=== PATIENT | female | born 1980 | race Caucasian/White ===

== ENCOUNTER 2022-09-05 10:50 | Outpatient (OUT) | payer BC, SELFPAY ==
[2022-09-05 11:10] LABS: Basophils Absolute Auto 0.1 10^3/uL (0.0-0.1); Basophils Percent Auto 0.6 % (0.2-2.0); Eosinophils Absolute Auto 0.2 10^3/uL (0.0-0.7); Eosinophils Percent Auto 1.9 % (0.9-7.0); Hematocrit 39.5 % (36.0-48.0); Hemoglobin 13.3 g/dL (12.0-16.0); Immature Granulocytes Abs Auto 0.03 10^3/uL (0.00-0.03); Immature Granulocytes Pct Auto 0.3 % (0.0-0.5); Lymphocytes Absolute Auto 3.8 10^3/uL (1.2-3.8); Mean Corpuscular HGB Conc 33.7 g/dL (29.9-35.2); Mean Corpuscular Hemoglobin 29.3 pg (26.7-34.0); Mean Platelet Volume 9.1 fL (9.5-13.5); Monocytes Absolute Auto 0.8 10^3/uL (0.3-0.8); Monocytes Percent Auto 7.7 % (1.7-12.0); Neutrophils Absolute Auto 5.1 10^3/uL (1.4-6.5); Neutrophils Percent Auto 51.5 % (43.0-75.0); Platelet Count 407 10^3/uL (150-450); Red Blood Count 4.54 10^6/uL (4.20-5.40); Red Cell Distribution Width 12.7 % (11.0-15.0)
[2022-09-05 13:01] LABS: Alanine Aminotransferase 42 U/L (14-59); Albumin Globulin Ratio 1.1; Alkaline Phosphatase 111 U/L (46-116); Aspartate Amino Transferase 26 U/L (15-37); BUN Creatinine Ratio 24.3; Bilirubin Total 0.4 mg/dL (0.2-1.0); Calcium 9.2 mg/dL (8.5-10.1); Chloride 104 mmol/L (98-107); Chol HDL Ratio 6.2; Cholesterol 247 mg/dL (<=200); Estimated GFR (African America >60 (>=60); Estimated GFR (Non-African Ame >60 (>=60); Free T3 2.86 pg/mL (2.18-3.98); Globulin 3.5 g/dL; Glucose 101 mg/dL (74-106); HDL Cholesterol 40 mg/dL (40-60); Sodium 140 mmol/L (136-145); Total Protein 7.5 g/dL (6.4-8.2); Triglycerides 181 mg/dL (<=150); VLDL CHOLESTEROL 36.2 mg/dL
[2022-09-05 16:19] LABS: Estimated Average Glucose 117 mg/dL; Glycohemoglobin A1C 5.7 % (4.5-6.2)
[2022-09-06 11:28] LABS: Insulin 18.9 uIU/mL (2.6-24.9)
== END 2022-09-05 10:51 | disposition home or self-care (01) ==
LOC: LAB 10:55
PROVIDERS: PCP Family Medicine; Visit Provider Family Medicine
DX: Z00.00 Encounter for general adult medical examination without abnormal findings (principal)
CPT/HCPCS: 36415; 80053; 80061; 83036; 83525; 83540; 84436; 84443; 84481; 85025

== ENCOUNTER 2022-09-24 13:20 | Outpatient (OUT) | payer BC, SELFPAY ==
--- NOTE | 2022-09-24 13:24 | US_ITS ---
Patient: VARUN VANEGAS Exam Date: 09/24/2022 : 1980 Gender:F Ordering : DR Nathanael Cordon . Admission #: [id number] Family : DR Obie Sanchez . Order #: [id number] CLICK HERE TO VIEW EXAM RADIOLOGY REPORT PROCEDURE: MM TOMOSYNTHESIS DIAGNOSTIC BI, 09/24/2022, 13:18 US BREAST LT LIMITED, 09/24/2022, 14:17 COMPARISON: MAMMO POST BIOPSY LEFT, 12/06/2020. MG MAMM SCREEN 3D MARK CAD, 11/04/2020. INDICATIONS: Personal History Of chronic nipple discharge; tenderness within lateral breast in region of prior biopsy Calculator Name NCI Breast Cancer Risk Assessment Tool 5 Year Breast Cancer Risk 1.70% Lifetime Breast Cancer Risk 13.90% Personal Breast Cancer No Personal Ovarian Cancer No Treatments None Family Cancers None LOCATION: [facility] BREAST COMPOSITION: Heterogeneously dense,which may obscure small masses. FINDINGS: DIAGNOSTIC CATEGORY 4--SUSPICIOUS FOR MALIGNANCY. FINDING DOES NOT EXHIBIT CLASSIC FINDINGS OF BREAST CANCER: RIGHT BREAST: No significant suspicious finding. No significant change has occurred. LEFT BREAST: Stable mass and biopsy marker clip within posterior upper-outer quadrant. No appreciable mammographic abnormality within the subareolar region or appreciable duct dilation. New 1.7 cm mass within posterior medial breast only partially included on today's images due to its location. Ultrasound evaluation demonstrates an 8 x 8 x 3 mm complex cyst versus nodule in the subareolar region 1.4 cm from the nipple. Adjacent to this is an 8 by 5 x 4 mm mixed cystic and solid structure which demonstrates trace amount of internal blood flow on color Doppler; ultrasound-guided biopsy is recommended. Within posterior breast 10 o'clock position 4.8 cm from the nipple is a 1.3 x 1.9 x 0.6 cm hypoechoic area with increased through transmission compatible with a cyst. Follow-up ultrasound in 6 months is recommended to document stability of this presumed cyst. RECOMMENDATIONS: ULTRASOUND-GUIDED CORE BIOPSY: LEFT BREAST PLEASE NOTE: A NORMAL MAMMOGRAM DOES NOT EXCLUDE THE POSSIBILITY OF BREAST CANCER. A CLINICALLY SUSPICIOUS PALPABLE LUMP SHOULD BE BIOPSIED. Dictated by: Uriel Holguin M.D. on 09/24/2022 at 16:29 Approved by: Uriel Holguin M.D. on 09/24/2022 at 16:36
== END 2022-09-24 13:21 | disposition home or self-care (01) ==
LOC: MAMMO 13:20
PROVIDERS: PCP Family Medicine; Visit Provider Family Medicine
DX: Z87.898 Personal history of other specified conditions (principal); Z98.890 Other specified postprocedural states; R92.8 Other abnormal and inconclusive findings on diagnostic imaging of breast
CPT/HCPCS: 76642; 77066; G0279

== ENCOUNTER 2022-10-01 10:38 | Day surgery (SDC) | payer BC, SELFPAY ==
[2022-09-28] MEDS: LIDOCAINE HCL 10 ML, SODIUM BICARBONATE 1 MEQ INJ (14:40)
--- NOTE | 2022-10-01 10:58 | US_ITS ---
[address] [address] Patient Name: VARUN VANEGAS MRN: [id number] date: 1980 Sex: F Assigned Patient Location: US Current Patient Location: US Accession/Order Number: [id number] Exam Date: 10/01/2022 11:00 Report Date: 10/01/2022 12:47 At the request of: GERARDO ORELLANA Procedure: US breast vac bx w/ clip LT EXAM: US breast vac bx w/ clip LT HISTORY: Complex cyst nodule COMPARISON: Ultrasound breast left limited 09/24/2022 TECHNIQUE: After obtaining informed consent, ultrasound-guided biopsy was performed in the usual sterile manner. The location of the biopsy was then marked as indicated below. FINDINGS: Specimen #, Location: 3 core samples; retroareolar 7 x 6 x 4 mm mass versus complex cyst. Biopsy Needle: 13 gauge vacuum core biopsy needle. Marker(s): A single metallic marker was placed in the appropriate targeted location. Medication: Buffered 1% Lidocaine with epinephrine administered locally. Complications: None. Pathology: Pending. US/US breast vac bx w/ clip LT IMPRESSION: 1. Uneventful ultrasound-guided breast biopsy. 2. Pathology results are pending. An addendum to this report will be provided after pathology results are available. Electronically authenticated by: JORGE COATES Date: 10/01/2022 12:47
--- NOTE | 2022-10-01 10:58 | MM_ITS ---
Patient: VARUN VANEGAS Exam Date: 10/01/2022 : 1980 Gender:F Ordering : DR Nathanael Cordon . Admission #: [id number] Family : Order #: [id number] CLICK HERE TO VIEW EXAM RADIOLOGY REPORT PROCEDURE: MM POST BIOPSY LT COMPARISON: MM TOMOSYNTHESIS DIAGNOSTIC BI, 09/24/2022. MAMMO POST BIOPSY LEFT, 12/06/2020. MG MAMM SCREEN 3D MARK CAD, 11/04/2020. INDICATIONS: complex cyst versus nodule BREAST COMPOSITION: Heterogeneously dense,which may obscure small masses. FINDINGS: DIAGNOSTIC CATEGORY 1--NEGATIVE. BIOPSY MARKER: A metallic marker has been placed in the targeted location within the anterior lower-inner quadrant of the left breast. BREAST FINDINGS: Expected post biopsy findings. RECOMMENDATIONS: ROUTINE MAMMOGRAM AND CLINICAL EVALUATION IN 12 MONTHS. Dictated by: Uriel Holguin M.D. on 10/01/2022 at 13:57 Approved by: Uriel Holguin M.D. on 10/01/2022 at 14:11
[2022-10-01 11:05] VITALS: BP 113/78; PULSE 91; O2SAT 98
[2022-10-01] MEDS: LIDOCAINE HCL/EPINEPHRINE 10 ML, SODIUM BICARBONATE 1 MEQ INJ (14:40)
== END 2022-10-01 12:15 | disposition home or self-care (01) ==
LOC: US 10:39
PROVIDERS: Radiology Diagnostic Radiology; PCP Family Medicine; Visit Provider Family Medicine
DX: N64.89 Other specified disorders of breast (principal); N62 Hypertrophy of breast; N60.12 Diffuse cystic mastopathy of left breast
CPT/HCPCS: 19083; 77065; 88305; 88341; 88342

== ENCOUNTER 2022-12-05 08:30 | Outpatient (REF) | payer BC, SELFPAY ==
[2022-12-05 10:54] LABS: SARS-CoV-2 Ag NEGATIVE (NEGATIVE)
[2022-12-05 15:51] LABS: SARS-CoV-2 NAA NOT DETECTED (NOT DETECTE)
== END 2022-12-05 08:31 | disposition home or self-care (01) ==
LOC: LAB 08:30
PROVIDERS: PCP Family Medicine; Visit Provider Family Medicine
DX: J21.9 Acute bronchiolitis, unspecified (principal)
CPT/HCPCS: 87635; 87811

== ENCOUNTER 2023-04-04 10:02 | Outpatient (OUT) | payer BC, SELFPAY ==
--- NOTE | 2023-04-04 | US_ITS ---
Patient Name: VARUN VANEGAS MR#: [id number] : 1980 Exam Date: 04/04/2023 Ordering Doctor: DR Nathanael Cordon . RADIOLOGY REPORT PROCEDURE: MM TOMOSYNTHESIS DIAGNOSTIC LT, 04/04/2023, 10:20 US BREAST LT LIMITED, 04/04/2023, 09:47 COMPARISON: US BREAST LT LIMITED, 04/04/2023. US BREAST LT LIMITED, 09/24/2022. MM POST BIOPSY LT, 10/01/2022. MM TOMOSYNTHESIS DIAGNOSTIC BI, 09/24/2022. MAMMO POST BIOPSY LEFT, 12/06/2020. MG MAMM SCREEN 3D MARK CAD, 11/04/2020. INDICATIONS: breast nodule N63.0 Calculator Name NCI Breast Cancer Risk Assessment Tool 5 Year Breast Cancer Risk 1.70% Lifetime Breast Cancer Risk 13.90% Personal Breast Cancer No Personal Ovarian Cancer No Treatments None Family Cancers None LOCATION: [facility] BREAST COMPOSITION: Heterogeneously dense,which may obscure small masses. FINDINGS: DIAGNOSTIC CATEGORY 2--BENIGN FINDING: LEFT BREAST: Stable partially circumscribed mass/cyst within posterior upper-outer quadrant previously biopsied and shown to be benign. Stable partially circumscribed lesion within posterior medial breast; unchanged. Scattered asymmetries appear stable. Ultrasound evaluation shows previously seen biopsied lesion within anterior breast 7 o'clock region. Stable appearance of additional benign-appearing cysts and nodules. Specific attention to the 10 o'clock lesion 5.0 cm from the nipple; stable with no appreciable internal blood flow. Follow-up screening mammography in 1 year is recommended. Alternatively, given the complex parenchyma of the left breast MRI could be performed if clinically indicated. Self-breast examination and additional evaluation of any changes was stressed to the patient. RECOMMENDATIONS: ROUTINE MAMMOGRAM AND CLINICAL EVALUATION IN 12 MONTHS. PLEASE NOTE: A NORMAL MAMMOGRAM DOES NOT EXCLUDE THE POSSIBILITY OF BREAST CANCER. A CLINICALLY SUSPICIOUS PALPABLE LUMP SHOULD BE BIOPSIED. Dictated by: Uriel Holguin M.D. on 04/04/2023 at 11:09 Approved by: Uriel Holguin M.D. on 04/04/2023 at 11:23
--- NOTE | 2023-04-04 10:06 | MM_ITS ---
Patient Name: VARUN VANEGAS MR#: [id number] : 1980 Exam Date: 04/04/2023 Ordering Doctor: DR Nathanael Cordon . RADIOLOGY REPORT PROCEDURE: MM TOMOSYNTHESIS DIAGNOSTIC LT, 04/04/2023, 10:20 US BREAST LT LIMITED, 04/04/2023, 09:47 COMPARISON: US BREAST LT LIMITED, 04/04/2023. US BREAST LT LIMITED, 09/24/2022. MM POST BIOPSY LT, 10/01/2022. MM TOMOSYNTHESIS DIAGNOSTIC BI, 09/24/2022. MAMMO POST BIOPSY LEFT, 12/06/2020. MG MAMM SCREEN 3D MARK CAD, 11/04/2020. INDICATIONS: breast nodule N63.0 Calculator Name NCI Breast Cancer Risk Assessment Tool 5 Year Breast Cancer Risk 1.70% Lifetime Breast Cancer Risk 13.90% Personal Breast Cancer No Personal Ovarian Cancer No Treatments None Family Cancers None LOCATION: [facility] BREAST COMPOSITION: Heterogeneously dense,which may obscure small masses. FINDINGS: DIAGNOSTIC CATEGORY 2--BENIGN FINDING: LEFT BREAST: Stable partially circumscribed mass/cyst within posterior upper-outer quadrant previously biopsied and shown to be benign. Stable partially circumscribed lesion within posterior medial breast; unchanged. Scattered asymmetries appear stable. Ultrasound evaluation shows previously seen biopsied lesion within anterior breast 7 o'clock region. Stable appearance of additional benign-appearing cysts and nodules. Specific attention to the 10 o'clock lesion 5.0 cm from the nipple; stable with no appreciable internal blood flow. Follow-up screening mammography in 1 year is recommended. Alternatively, given the complex parenchyma of the left breast MRI could be performed if clinically indicated. Self-breast examination and additional evaluation of any changes was stressed to the patient. RECOMMENDATIONS: ROUTINE MAMMOGRAM AND CLINICAL EVALUATION IN 12 MONTHS. PLEASE NOTE: A NORMAL MAMMOGRAM DOES NOT EXCLUDE THE POSSIBILITY OF BREAST CANCER. A CLINICALLY SUSPICIOUS PALPABLE LUMP SHOULD BE BIOPSIED. Dictated by: Uriel Holguin M.D. on 04/04/2023 at 11:09 Approved by: Uriel Holguin M.D. on 04/04/2023 at 11:23
--- OUTSIDE RECORDS SUMMARY | 2023-04-04 10:10 | XMS_ITS | CCD ---
Author Name Unknown Address [address] [facility] [address] [place] [address] Organization [facility] Care Team Providers Care Press Operator Apprentice Name Role Phone LULA, DR LOERA Admitting Unavailable LULA, DR LOERA Attending Unavailable LULA, DR LOERA Consulting Unavailable REQUEST, DR LEXI LISTED Primary Care Unavaila ble LULA, DR LOERA Admitting Unavailable LULA, DR LOERA Attending Unavailable LULA, DR LOERA Consulting Unavailable REQUEST, DR ELLIOTT LISTED Primary Care Unavaila ble ZIEBER, DR URIEL Powell Consulting Unavailable LULA, DR LOERA Admitting Unavailable REQUEST, DR ELLIOTT LISTED Primary Care Unavaila ble COLLINS, DR NATALIA Cardoza Consulting Unavailable LULA, DR LOERA Attending Unavailable LULA, DR LOERA Consulting Unavailable LULA, DR LOERA Admitting Unavailable REQUEST, DR ELLIOTT LISTED Primary Care Unavaila ble LULA, DR LOERA Attending Unavailable LULA, DR LOERA Consulting Unavailable ZIEBER, DR URIEL Powell Consulting Unavailable LULA, DR LOERA Admitting Unavailable LULA, DR LOERA Attending Unavailable LULA, DR LOERA Consulting Unavailable LULA, DR LOERA Primary Care Unavailable LULA, DR LOERA Consulting Unavailable HOY, DR CARRILLO Primary Care Unavailable LULA, DR LOERA Admitting Unavailable LULA, DR LOERA Attending Unavailable Problems Active Problems Problem Classification Problem Date Documented Da te Episodic/Chronic Malaise and fatigue (4 sources) Other fatigue; Translations: [OTHER FATIGUE] Onset: 04-19-2021 Episodic Nonmalignant breast conditions (1 source) Diffuse cystic mastopathy of left breast; Translations: [DIFFUSE CYSTIC MASTOPATHY LT BREAST] Onset: 12-15-2020 Chronic Other endocrine disorders (4 sources) Endocrine disorder, unspecified; Translations: [ENDOCRINE DISORDER UNSPECIFIED] Onset: 02-13-2021 Episodic Past or Other Problems Problem Classification Problem Date Documented Date Episodic/Chronic Immunizations and screening for infectious disease (1 source) Encounter for screening for human papillomavirus (HPV); Translations: [ENC SCREENING HUMAN PAPILLOMAVIRUS] Onset: 10-29-2020 Episodic Nonmalignant breast conditions (8 sources) Unspecified lump in the left breast, upper outer quadrant; Translations: [Unspecified lump in the left breast, unspecified quadrant] Onset: 11-16-2020 Episodic Other screening for suspected conditions (not mental disorders or infectious disease) (4 sources) Encounter for screening mammogram for malignant neoplasm of breast; Translations: [ENC SCR MAMMO MALIG NEOPLASM BREAST] Onset: 11-04-2020 Episodic Results Test Name Value Interpretation Reference Range Facility ED Clinical Summaryon 2021 ED Clinical Summary [facility] ? Urgent Care [address] [place], [place] [id number] Clinical Summary PERSON INFORMATION Name: VARUN CAGE Age: 40 Years Sex: FEMALE : 1980 MRN: Acct#: Visit Reason: UC - Cough; SORE THROAT, COUGH, EAR PAIN Arrival: 06/11/2021 10:05:38 Discharge: 06/11/2021 10:44:00 LOS: 000 00:39 Check In: 06/11/2021 10:05:38 Checkout: 06/11/2021 10:44:00 Address: [address] [place], [place] [id number] PCP: GERARDO CORDON PROVIDER INFORMATION Provider Role Assigned Unassigned Aden OWENS, [place] ED Nurse 06/11/2021 10:09:40 Cr Cornejo PA-C ED PA 06/11/2021 10:09:46 VITALS INFORMATION Vital Sign Triage Latest Temperature Tympanic Temperature Temporal Artery Pulse Rate O2 Sat 97 % 97 % Respiratory Rate Blood Pressure /80 mmHg /80 mmHg MEDICAL INFORMATION Medications Given: Medication Dose Route dexamethasone (!-Decadron) 10 mg PO Allergy Information: No Known Medication Allergies PHYSICIAN DOCUMENTATION DISCHARGE INFORMATION: Discharge Disposition: Home Discharge Location: Home PATIENT EDUCATION INFORMATION Instructions: Strep Throat, Adult, Oyas-uy-Rviy Follow-Up: With: Address: Chris: GERARDO CORDON [address] [facility], [facility] [place] [address] Business (1) Within 1 week Comments: Please follow-up with Dr. Cordon, call the office and schedule an appointment to be seen in a week or sooner for continued care, take your Zithromax as prescribed, take ifcz-gqq-ofnekne pain medication as needed, drink plenty of water for hydration, and return back to the urgent care center for any worsening symptoms, concerns, or complications. DIAGNOSIS: 1:Strep pharyngitis Patient Understands: Yes - Patient/family/caregi leeanna verbalizes understanding of instructions given Comment: Normal [facility] ED Patient Summaryon 022 ED Patient Summary [facility] ? Urgent Care [address] [place] [address] PATIENT DISCHARGE INSTRUCTIONS Patient Information Name: VARUN CAGE Age: 40 Years Date of : 1980 Reason For Visit: UC - Cough; SORE THROAT, COUGH, EAR PAIN Arrival Time: 06/11/2021 10:05:38 Primary Care Physician: GERARDO CORDON Attending Physician: Cr Cornejo PA-C Comment: Patient Education With: Address: When: GERARDO CORDON [address] [place] [id number] Business (1) Within 1 week Comments: Please follow-up with Dr. Cordon, call the office and schedule an appointment to be seen in a week or sooner for continued care, take your Zithromax as prescribed, take yztx-jxv-tomyoeh pain medication as needed, drink plenty of water for hydration, and return back to the urgent care center for any worsening symptoms, concerns, or complications. Strep Throat, Adult Strep throat is an infection of the throat. It is caused by germs (bacteria). Strep throat is common during the cold months of the year. It mostly affects children who are 5?15 years old. However, people of all ages can get it at any time of the year. When strep throat affects the tonsils, it is called tonsillitis. When it affects the back of the throat, it is called pharyngitis. This infection spreads from person to person through coughing, sneezing, or having close contact. What are the causes? This condition is caused by the Streptococcus pyogenes germ. What increases the risk? You are more likely to develop this condition if: ? You care for young children. Children are more likely to get strep throat and may spread it to others. ? You go to crowded places. Germs can spread easily in such places. ? You kiss or touch someone who has strep throat. What are the signs or symptoms? Symptoms of this condition include: ? Fever or chills. ? Redness, swelling, or pain in the tonsils or throat. ? Pain or trouble when swallowing. ? White or yellow spots on the tonsils or throat. ? Tender glands in the neck and under the jaw. ? Bad breath. ? Red rash all over the body. This is rare. How is this treated? This condition may be treated with: ? Medicines that kill germs (antibiotics). ? Medicines that treat pain or fever. These include: ? Ibuprofen or acetaminophen. ? Aspirin, only for patients who are over the age of 18. ? Throat lozenges. ? Throat sprays. Follow these instructions at home: Medicines ? Take kjyg-dfk-bkiedqn and prescription medicines only as told by your doctor. ? Take your antibiotic medicine as told by your doctor. Do not stop taking the antibiotic even if you start to feel better. Eating and drinking ? If you have trouble swallowing, eat soft foods until your throat feels better. ? Drink enough fluid to keep your pee (urine) pale yellow. ? To help with pain, you may have: ? Warm fluids, such as soup and tea. ? Cold fluids, such as frozen desserts or popsicles. General instructions ? Rinse your mouth (gargle) with a salt-water mixture 3?4 times a day or as needed. To make a salt-water mixture, dissolve ??1 tsp (3?6 g) of salt in 1 cup (237 mL) of warm water. ? Rest as much as you can. ? Stay home from work or school until you have been taking antibiotics for 24 hours. ? Avoid smoking or being around people who smoke. ? Keep all follow-up visits as told by your doctor. This is important. How is this prevented? ? Do not share food, drinking cups, or personal items. They can cause the germs to spread. ? Wash your hands well with soap and water. Make sure that all people in your house wash their hands well. ? Have family members tested if they have a fever or a sore throat. They may need an antibiotic if they have strep throat. Contact a doctor if: ? You have swelling in your neck that keeps getting bigger. ? You get a rash, cough, or earache. ? You cough up a thick fluid that is green, yellow-brown, or bloody. ? You have pain that does not get better with medicine. ? Your symptoms get worse instead of getting better. ? You have a fever. Get help right away if: ? You vomit. ? You have a very bad headache. ? Your neck hurts or feels stiff. ? You have chest pain or are short of breath. ? You have drooling, very bad throat pain, or changes in your voice. ? Your neck is swollen, or the skin gets red and tender. ? Your mouth is dry, or you are peeing less than normal. ? You keep feeling more tired or have trouble waking up. ? Your joints are red or painful. Summary ? Strep throat is an infection of the throat. It is caused by germs (bacteria). ? This infection can spread from person to person through coughing, sneezing, or having close contact. ? Take your medicines, including antibiotics, as told by you (more content not included)... Normal [facility] Recordon 022 Urgent Care Record [facility] ? Urgent Care [address] [place] [address] PATIENT DISCHARGE INSTRUCTIONS Patient Information Name: VARUN CAGE Age: 40 Years Date of : 1980 Reason For Visit: UC - Cough; SORE THROAT, COUGH, EAR PAIN Arrival Time: 06/11/2021 10:05:38 Primary Care Physician: GERARDO CORDON Attending Physician: Cr Cornejo PA-C Comment: Visit Diagnosis: Diagnoses This Visit Strep pharyngitis (J02.0) UC - Cough ([id number]) If you received any narcotics, sedation, or any other medication that causes drowsiness for the next 24 hours, unless otherwise directed: ? Do not drive a car. ? Do not operate machinery such as power tools, lawn mowers, drills, sewing machines, or stoves ? Avoid alcoholic beverages and drugs for allergies, nerves, or sleep ? Do not make important personal or business decisions or sign any legal documents With: Address: When: GERARDO CORDON [address] [facility], [address] [place] [id number] Business (1) Within 1 week Comments: Please follow-up with Dr. Cordon, call the office and schedule an appointment to be seen in a week or sooner for continued care, take your Zithromax as prescribed, take hzjy-xgu-inljype pain medication as needed, drink plenty of water for hydration, and return back to the urgent care center for any worsening symptoms, concerns, or complications. Medication Information: The exam and treatment you received today in the [facility] were for an urgent problem and are not intended as complete care. It is important for you to follow up with a doctor, nurse practitioner, or physician?s emergency veterinary assistant for ongoing care. If your symptoms become worse or you do not improve as expected and you are unable to reach your usual health care provider, you should return to the Emergency Department, we are available 24 hours a day. For those patients who have received Radiology results, the interpretation of your X-ray as given to you by our Urgent Care physician is only a preliminary report. The Radiologist will review your films and if there is a change in the diagnosis you will be notified by phone. Please make sure you have provided a working phone number so we can reach you if necessary. In the event that you had a lab culture while you were a patient in the Urgent Care, you will be notified by phone if there is a need to change your antibiotic. Please make sure you have provided a working phone number so we can reach you if necessary. [facility] has provided you with a complete list of medications post discharge. Please inform your bridge club manager/provider of your visit and for further instruction on these medications. Any specific questions regarding your chronic medications and dosages should be discussed with your primary care physician(s) and/or pharmacist. New Medications [facility] [facility], [address], [place] [id number], [phone] azithromycin (Zithromax 500 mg oral tablet) 1 tab(s) Oral every day for 5 Days. Refills: 0. Other Medications dexamethasone (!-Decadron) 10 Milligram Oral once. MAGRU. Medications to Continue That Have Not Changed Other Medications testosterone (testosterone 2% transdermal cream) Topical every day. Visit Information Allergies: Substance Reaction Symptoms Type Comments No Known Medication Allergies Drug Vital Signs: Vitals and Measurements this Visit (last charted value for your 06/11/2021 visit) Vital Signs This Visit Temperature Temporal: 37 DegC Peripheral Pulse Rate: 92 bpm Respiratory Rate: 16 br/min Systolic Blood Pressure: 118 mmHg Diastolic Blood Pressure: 80 mmHg SpO2: 97 % Oxygen Therapy: Room air Measurements This Visit Height: 162.56 cm Weight: 82.55 kg Body Mass Index: 31.24 kg/m2 Problems List: Problem Onset Comments Disease caused by 2019 novel coronavirus 05/11/20 Problem added by Rule (IC_COVID19_AUTO_PROB BERNIE) following 2019 Novel Coronavirus (CoVID-19), 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 MRSA (methicillin resistant Staphylococcus aureus) 03/15/14 Suprapubic abdominal wound culture positive for MRSA Strep throat Patient Education Strep Throat, Adult Strep throat is an infection of the throat. It is caused by germs (bacteria). Strep throat is common during the cold months of the year. It mostly affects children who are 5?15 years old. However, people of all ages can get it at any time of the year. When strep throat affects the tonsils, it is called tonsillitis. When it affects the back of the throat, it is called pharyngitis. This infection spreads from person to person through coughing, sneezing, or having close contact. What are the causes? This condition is caused by the Streptococcus pyogenes germ. What increases the risk? You are more likely to develop this cond (more content not included)... Normal [facility] GTT 2 HRon 04-19-2021 Glucose [Mass/Vol] 101 mg/dL Normal 74-106 [facility] Comment on above: Performed By: #### D SUSANNAH #### [facility] [address] [place] [address] Dr. Jarred Anaya Glucose [Mass/Vol] 127 mg/dL Normal [facility] Comment on above: Performed By: #### Amos DAVALOS #### [facility] [address] [place] [address] Dr. Jarred Anaya Glucose [Mass/Vol] 113 mg/dL Normal [facility] Comment on above: Performed By: #### Amos DAVALOS #### [facility] [address] [place] [address] Dr. Jarred Anaya CORTISOL FREE, TOTAL WITH CB Juan Carlos 02-21-2021 Shankar.Bind.Glob.(CBG) 2.2 mg/dL Normal [facility] Comment on above: Result Comment: This test was developed and its performance characteristics determined by [facility]. It has not been cleared or approved by the Food and Drug Administration. Reference Range: Adults: 1.7 - 3.1 Performed By: #### C ORTFRE #### [facility] [address] [place] [address] Dr. Jarred Anaya Cortisol, Serum LCMS 9.3 ug/dL Normal [facility] Comment on above: Result Comment: This test was developed and its performance characteristics determined by [facility]. It has not been cleared or approved by the Food and Drug Administration. Reference Range: Adults 8:00 AM 8.0 - 19 4:00 PM 4.0 - 11 Performed By: #### C ORTFRE #### [facility] [address] [place] [address] Dr. Jarred Anaya Free Cortisol, Serum 0.50 ug/dL Normal [facility] Comment on above: Result Comment: Refe rence Range: Adults 8:00 AM: 0.2 - 1.8 Performed By: #### C ORTFRE #### [facility] [address] [place] [address] Dr. Jarred Anaya Percent Free Cortisol, Serum 5.4 % Normal [facility] Comment on above: Result Comment: Refe rence Range: Adults 8:00 am: 2.3 - 9.5 Performed By: #### C ORTFRE #### [facility] [address] [place] [address] Dr. Jarred Anyaa REVERSE T3on 02-18-2021 Reverse T3, Serum 16.6 ng/dL Normal 9.2-24.1 [facility] Comment on above: Result Comment: This test was developed and its performance characteristics determined by [facility]. It has not been cleared or approved by the Food and Drug Administration. Performed By: #### R EVRT3 #### [facility] [address] [place] [address] [address] Jarred Anaya SEROTONINon 02-16-2021 Serotonin, Serum 199 ng/mL Normal 0-420 [facility] Comment on above: Performed By: #### S EROTON #### [facility] [address] [place] [address] [address] Jarred Anaya ESTRONEon 02-15-2021 Estrone, Serum 119 pg/mL Normal [facility] Comment on above: Result Comment: Adul t: Follicular phase 39 - 132 Periovulatory 58 - 256 Luteal phase 54 - 179 : 1st trimester 247 - 2774 2nd trimester 569 - 5781 Postmenopausal: with ERT 51 - 488 without ERT 31 - 100 Performed By: #### E STRONE #### [facility] [address] [address] [address] Jarred Anaya FREE TESTOSTERONEon 02-16-20 21 Free Testosterone(Direct) 1.0 pg/mL Normal 0.0-4.2 [facility] Comment on above: Performed By: #### D HEASUL #### [facility] [address] [place] [address] [address] Jarred Anaya TESTOSTERONE, FREE,DIRECT, T OTALon 02-15-2021 Free Testosterone(Direct) 1.4 pg/mL Normal 0.0-4.2 [facility] Comment on above: Result Comment: Perf ormed at: BN Performed By: #### F T4 #### [facility] [address] [place] [address] Dr. Jarred Anaya Testosterone [Mass/Vol] 21 ng/dL Normal 4-50 [facility] Comment on above: Result Comment: Perf ormed at: CB Performed By: #### F T4 #### [facility] [address] [place] [address] Dr. Jarred Anaya VIT D 1 25 DIHYDROXYon 02-15 Calcitriol(1,25 di-OH Vit D) 50.7 pg/mL Normal 19.9-79.3 [facility] Comment on above: Performed By: #### F T4 #### [facility] [address] [place] [address] Dr. Jarred Anaya C-PEPTIDE, SERUMon C-Peptide, Serum 3.0 ng/mL Normal 1.1-4.4 [facility] Comment on above: Result Comment: C-Pe ptide reference interval is for fasting patients. Performed By: #### D HEASUL #### [facility] [address] [place] [address] Dr. Jarred Anaya DHEA-SULFATEon 02-14-2021 DHEA-Sulfate 66.6 ug/dL Normal 57.3-279.2 [facility] Comment on above: Performed By: #### D FLORENCIOUL #### [facility] [address] [place] [address] Dr. Jarred Anaya ESTRADIOLon 02-14-2021 Estradiol 254.0 pg/mL Normal [facility] Comment on above: Result Comment: Adul t Female: Follicular phase 12.5 - 166.0 Ovulation phase 85.8 - 498.0 Luteal phase 43.8 - 211.0 Postmenopausal <6.0 - 54.7 1st trimester 215.0 - >4300.0 Marty ECLIA methodology Performed By: #### E STRADI #### [facility] [address] [place] [address] Dr. Jarred Anaya FERRITINon 02-14-2021 Ferritin [Mass/Vol] 80 ng/mL Normal 15-150 [facility] Comment on above: Performed By: #### F T4 #### [facility] [address] [place] [address] Dr. Jarred Anaya FREE T3 LABCORPon 02-14-2021 Triiodothyronine (T3) Free 3.2 pg/mL Normal 2.0-4.4 [facility] Comment on above: Performed By: #### F T3LC #### [facility] [address] [place] [address] Dr. Jarred Anaya INSULINon 02-14-2021 Insulin 19.1 uIU/mL Normal 2.6-24.9 [facility] Comment on above: Performed By: #### D SUSANNAH #### [facility] [address] [place] [address] Dr. Jarred Anaya PROGESTERONEon 02-14-2021 Progesterone 10.1 ng/mL Normal [facility] Comment on above: Result Comment: Foll icular phase 0.1 - 0.9 Luteal phase 1.8 - 23.9 Ovulation phase 0.1 - 12.0 First trimester 11.0 - 44.3 Second trimester 25.4 - 83.3 Third trimester 58.7 - 214.0 Postmenopausal 0.0 - 0.1 Performed By: #### Amos DAVALOS #### [facility] [address] [place] [address] Dr. Jarred Anaya SEX HORMONE-BINDING GLOBULIN on 02-14-2021 Sex Horm Binding Glob, Serum 116.0 nmol/L Normal 24.6-122.0 [facility] Comment on above: Performed By: #### F T4 #### [facility] [address] [place] [address] Dr. Jarred Anaya T3, TOTAL (TRIIODOTHYRONINE) on 02-14-2021 T3, TOTAL 116 ng/dL Normal 71-180 [facility] Comment on above: Performed By: #### F T4 #### [facility] [address] [place] [address] Dr. Jarred Anaya T4 [facility]OR[facility]on 02-14-2021 T4 [Mass/Vol] 7.8 ug/dL Normal 4.5-12.0 [facility] Comment on above: Performed By: #### Amos DAVALOS #### [facility] [address] [place] [address] Dr. Jarred Anaya THYROGLOBULIN AB AND THYROGL OBULINon 02-14-2021 Thyroglobulin Antibody <1.0 Normal 0.0-0.9 [facility] Comment on above: Result Comment: Thyr oglobulin Antibody measured by [employer] Pattern Methodology Performed By: #### T HYGIMA #### [facility] [address] [place] [address] Dr. Jarred Anaya Thyroglobulin by AMANUEL 15.4 ng/mL Normal 1.5-38.5 [facility] Comment on above: Result Comment: Acco rding to the National Academy of Clinical Biochemistry, the reference interval for Thyroglobulin (TG) should be related to euthyroid patients and not for patients who underwent thyroidectomy. TG reference intervals for these patients depend on the residual mass of the thyroid tissue left after surgery. Establishing a post-operative baseline is recommended. The assay limit of quantitation is 0.1 ng/mL . Thyroglobulin measured by Sonali [place] Immunometric Assay Performed By: #### T HYGIMA #### [facility] [address] [place] [address] Dr. Jarred Anaya THYROID PEROXIDASE ABon 01-19 Thyroid Peroxidase (TPO) Ab <8 Normal 0-34 [facility] Comment on above: Performed By: #### T POAB #### [facility] [address] [place] [address] Dr. Jarred Anaya FREE T4on 02-13-2021 Free T4 [Mass/Vol] 0.97 ng/dL Normal 0.78-2.19 [facility] Comment on above: Performed By: #### F T4 #### [facility] [address] [place] [address] Dr. Jarred Anaya GLUCOSE BLOODon 02-13-2021 Glucose [Mass/Vol] 98 mg/dL Normal 74-106 [facility] Comment on above: Performed By: #### D SUSANNAH #### [facility] [address] [place] [address] Dr. Jarred Anaya GLYCOHEMOGLOBIN A1Con 2020 ADA RECOMMENDATION ADA THERAPEUTIC TARGET 6.0 - 7.0 ACTION SUGGESTED > 7.0 Normal [facility] Comment on above: Performed By: #### D SUSANNAH #### [facility] [address] [place] [address] Dr. Jarred Anaya Glucose [Mass/Vol] 114 mg/dL Normal [facility] Comment on above: Performed By: #### D HEBELENUL #### [facility] [address] [address] [address] Jarred Anaya HbA1c (Bld) [Mass fraction] 5.6 % Normal <=6.0 [facility] Comment on above: Performed By: #### D SUSANNAH #### [facility] [address] [place] [address] [address] Jarred Anaya TSHon 02-13-2021 TSH 2.214 uIU/mL Normal 0.470-4.680 [facility] Comment on above: Performed By: #### D SUSANNAH #### [facility] Laboratory [address] [address] [address] Jarred Anaya TSH RANGE SEE BELOW Normal [facility] Comment on above: Result Comment: <0.3 4 UIU/ml HYPERTHYROID 0.34-5.60 UIU/ml EUTHYROID >5.60 UIU/ml HYPOTHYROID Performed By: #### D SUSANNAH #### [facility] Laboratory [address] [address] [address] Jarred Anaya MAMMO POST BIOPSY LEFTon MAMMO POST BIOPSY LEFT Patient: OG CAGE Exam Date: 12/06/2020 : 1980 Gender:F Ordering : DR LUZ MARIA COTTON . Admission #: [id number] Family : Order #: [id number] CLICK HERE TO VIEW EXAM This report includes an Addendum and supersedes previous reports for this exam. RADIOLOGY REPORT PROCEDURE: MAMMOGRAM POST BIOPSY IMAGES COMPARISON: MG MAMM MARK DIAG W CAD DIG, 12/17/2014. MG MAMM SCREEN 3D MARK CAD, 11/04/2020. INDICATIONS: Mammographic mass of left breast BREAST COMPOSITION: Heterogeneously dense,which may obscure small masses. FINDINGS: BIOPSY MARKER: A metallic marker has been placed in the targeted location within the upper-outer quadrant of the left breast. BREAST FINDINGS: Expected post biopsy findings. RECOMMENDATIONS: Dictated by: Uriel Holguin M.D. on 12/06/2020 at 14:31 Approved by: Uriel Holguin M.D. on 12/06/2020 at 14:32 ADDENDUM: FINDINGS: DIAGNOSTIC CATEGORY 3--PROBABLY BENIGN FINDING. THE FOLLOWING FINDING(S) HAS A HIGH PROBABILITY OF A BENIGN ETIOLOGY: RECOMMENDATIONS: SHORT TERM FOLLOW-UP DIAGNOSTIC MAMMOGRAM LEFT BREAST IN 6 MONTHS. Dictated by: Uriel Holguin M.D. on 12/14/2020 at 14:11 Approved by: Uriel Holguin M.D. on 12/14/2020 at 14:11 Normal [facility] US VAC ASST BX BRST LT W CLI Lucien 12-06-2020 US VAC ASST BX BRST LT W CLIP Patient: VARUN CAGE Exam Date: 12/06/2020 : 1980 Gender:F Ordering : DR LUZ MARIA COTTON . Admission #: [id number] Family : Order #: [id number] CLICK HERE TO VIEW EXAM This report includes an Addendum and supersedes previous reports for this exam. RADIOLOGY REPORT PROCEDURE: ULTRASOUND BIOPSY VACCUUM ASSISTED LEFT WITH CLIP COMPARISON: US BREAST LEFT LIMITED, 11/16/2020. INDICATIONS: Mammographic mass of left breast DESCRIPTION: After obtaining informed consent, a vacuum assisted ultrasound-guided biopsy was performed in the usual sterile manner. The location of the biopsy was then marked as indicated below. FINDINGS: RECOMMENDATIONS: SPECIMEN #, LOCATION: 3 soft tissue core specimens and 3 mL reddish brown aspirate fluid; mixed cystic and solid 2.7 cm lesion at 2:00. BIOPSY NEEDLE: 13 gauge Elite (r) vacuum core biopsy needle. 19 gauge needle for aspiration. MARKERS(S) PLACED: A single metallic marker was placed in the appropriate targeted location. MEDICATION: Buffered 1% lidocaine with epinephrine administered locally. COMPLICATIONS: None. PATHOLOGY LAB: Pending. CONCLUSION: 1. Uneventful ultrasound-guided breast biopsy. 2. Pathology results are pending. An addendum to this report will be provided after pathology results are available. Dictated by: Uriel Holguin M.D. on 12/06/2020 at 14:32 Approved by: Uriel Holguin M.D. on 12/06/2020 at 14:34 ADDENDUM: Final pathologic diagnosis: Breast parenchyma with fibrocystic changes, usual ductal hyperplasia, and apocrine metaplasia. This report was transmitted to the referring physician's office on December 12, 2020, and the office called to confirm receipt. Dictated by: Uriel Holguin M.D. on 12/14/2020 at 14:10 Approved by: Uriel Holguin M.D. on 12/14/2020 at 14:11 Normal [facility] US BREAST LEFT LIMITEDon US BREAST LEFT LIMITED Patient: OG CAGE Exam Date: 11/16/2020 : 1980 Gender:F Ordering : DR LUZ MARIA COTTON . Admission #: [id number] Family : Order #: [id number] CLICK HERE TO VIEW EXAM RADIOLOGY REPORT PROCEDURE: ULTRASOUND BREAST LEFT LIMITED COMPARISON: MG MAMM SCREEN 3D MARK CAD, 11/04/2020. INDICATIONS: Lump in left breast TECHNIQUE: Breast ultrasound was performed, with evaluation focusing only on specific areas of concern. FINDINGS: DIAGNOSTIC CATEGORY 4--SUSPICIOUS FOR MALIGNANCY BUT FINDING DOES NOT EXHIBIT CLASSIC FINDINGS OF BREAST CANCER: Ultrasound demonstrates 2 focal lesions in the left breast. At the 2 o'clock position is an area of oval anechoic echogenicity measuring 1.6 x 1.1 x 0.5 cm. This has an imperceptible rim with increased acoustic through transmission, a simple cyst is favored. At the 1 o'clock position is a lobular area of hypo echogenicity measuring 2.3 x 2.2 x 0 8 cm in size. This lesion has both solid and cystic components with a wall measuring up to 1 mm. This lesion is indeterminate. Biopsy is recommended for further evaluation. RECOMMENDATIONS: Tissue sampling of the left breast, fine needle aspiration versus possible core biopsy PLEASE NOTE: A NORMAL ULTRASOUND EXAMINATION DOES NOT EXCLUDE THE POSSIBILITY OF BREAST CANCER. A CLINICALLY SUSPICIOUS PALPABLE LUMP SHOULD BE BIOPSIED. Dictated by: Natalia Addison MD on 11/18/2020 at 07:25 Approved by: Natalia Addison MD on 11/18/2020 at 07:30 Normal [facility] MG MAMM SCREEN 3D MARK CADon 11-04-2020 MG MAMM SCREEN 3D MARK CAD Patient: VARUN CAGE Exam Date: 11/04/2020 : 1980 Gender:F Ordering : DR LUZ MARIA COTTON . Admission #: [id number] Family : Order #: [id number] CLICK HERE TO VIEW EXAM RADIOLOGY REPORT PROCEDURE: MAMMOGRAM SCREENING 3D BILATERAL CAD COMPARISON: MG MAMM MARK DIAG W CAD DIG, 12/17/2014. MG MAMM MARK DIAG W CAD DIG, 08/18/2013. INDICATIONS: Screening mammography Calculator Name NCI Breast Cancer Risk Assessment Tool 5 Year Breast Cancer Risk 0.50% Lifetime Breast Cancer Risk 9.00% Personal Breast Cancer No Personal Ovarian Cancer No Treatments None Family Cancers None LOCATION: [facility] BREAST COMPOSITION: Heterogeneously dense,which may obscure small masses. FINDINGS: DIAGNOSTIC CATEGORY 0--INCOMPLETE ASSESSMENT: NEED ADDITIONAL IMAGING EVALUATION. RIGHT BREAST: No significant suspicious finding. Scattered benign-appearing nodules are present. No significant change has occurred. LEFT BREAST: Oval partially circumscribed 2.8 x 1.9 x 1.8 cm mass within the posterior upper-outer quadrant. Ultrasound guided evaluation is recommended. RECOMMENDATIONS: ULTRASOUND: LEFT BREAST PLEASE NOTE: A NORMAL MAMMOGRAM DOES NOT EXCLUDE THE POSSIBILITY OF BREAST CANCER. A CLINICALLY SUSPICIOUS PALPABLE LUMP SHOULD BE BIOPSIED. Dictated by: Uriel Holguin M.D. on 11/04/2020 at 15:34 Approved by: Uriel Holguin M.D. on 11/04/2020 at 15:39 Normal [facility] PAP ACOG PANEL 2: 30 to 65on 10-20-2020 . . Normal [facility] Comment on above: Result Comment: Perf ormed at: [facility] Performed By: #### F T4 #### [facility] [address] [address] [address] Jarred Anaya Age Gdln ACOG Testing 30-65 Normal [facility] Comment on above: Performed By: #### F T4 #### [facility] [address] [address] [address] Jarred Anaya DIAGNOSIS: Comment Normal [facility] Comment on above: Result Comment: NEGA TIVE FOR INTRAEPITHELIAL LESION OR MALIGNANCY. PREDOMINANCE OF COCCOBACILLI CONSISTENT WITH SHIFT IN VAGINAL AMEENA IS PRESENT. Performed at: [facility] Performed By: #### F T4 #### [facility] [address] [address] [address] Jarred Anaya HPV Aptima Negative Normal Negative [facility] Comment on above: Result Comment: This nucleic acid amplification test detects fourteen high-risk HPV types (16,18,31,33,35,39,45,51,52,56,58,59,66,68) without differentiation. Performed at: =G Performed By: #### F T4 #### [facility] [address] [place] [address] Dr. Jarred Anaya Methodology: Comment Normal [facility] Comment on above: Result Comment: This liquid based ThinPrep(R) pap test was screened with the use of an image guided system. Performed at: [facility] Performed By: #### F T4 #### [facility] [address] [address] [address] Jarred Anaya Note: Comment Normal [facility] Comment on above: Result Comment: The Pap smear is a screening test designed to aid in the detection of premalignant and malignant conditions of the uterine cervix. It is not a diagnostic procedure and should not be used as the sole means of detecting cervical cancer. Both false-positive and false-negative reports do occur. . Performed at: [facility] Performed By: #### F T4 #### [facility] [address] [place] [address] Dr. Jarred Anaya Performed by: Comment Normal [facility] Comment on above: Result Comment: Kandace Key, [employer] Operator (ASCP) Performed at: [facility] Performed By: #### F T4 #### [facility] [address] [place] [address] Dr. Jarred Anaya Specimen adequacy: Comment Normal [facility] Comment on above: Result Comment: Sati sfactory for evaluation. Endocervical and/or squamous metaplastic cells (endocervical component) are present. Performed at: [facility] Performed By: #### F T4 #### [facility] [address] [place] [address] Dr. Jarred Anaya Encounters Encounter Date Encounter Type Care Provider Facility Start: 04-19-2021 End: 04-20-[address] LUZ MARIA COTTON Facility:[facility] Start: 02-13-2021 End: 02-14-[address] LUZ MARIA COTTON Facility:[facility] Start: 12-06-2020 End: 12-06-[address] LUZ MARIA COTTON Facility:[facility] Start: 11-16-2020 End: 09-30-[address] LUZ MARIA COTTON Facility:[facility] Start: 11-04-2020 End: 11-05-[address] LUZ MARIA COTTON Facility:[facility] Start: 10-29-2020 Encounter for gyneco logical examination (general) (routine) without abnormal findings DR LUZ MARIA COTTON [facility] Start: 10-17-2020 End: 10-17-[address] LUZ MARIA COTTON Facility:[facility] Start: 10-17-2020 End: 10-17-2020 Encounter for gynecological examination (general) (routine) without abnormal findings DR LUZ MARIA COTTON Facility:[facility] Payers Date Payer Category Payer Unknown [id number] 2.16.84 [id number] 1980 Unknown [id number] 2.16.84 [id number] 1980 Unknown [id number] 2.16.84 [id number] 1980 Unknown [id number] 2.16.84 [id number] 1980 Unknown [id number] 2.16.84 [id number] 1980 Unknown [id number] 2.16.84 [id number] 1959 Unknown [id number] 1960 Unknown [id number] Clinical Note 06-11-2021 Note Date & Type Note Facility 06-11-2021 Note Patient Education Ma terials Follows:Disease Strep Throat, Adult Strep throat is an infection of the throat. It is caused by germs (bacteria). Strep throat is common during the cold months of the year. It mostly affects children who are 5?15 years old. However, people of all ages can get it at any time of the year. When strep throat affects the tonsils, it is called tonsillitis. When it affects the back of the throat, it is called pharyngitis. This infection spreads from person to person through coughing, sneezing, or having close contact. What are the causes? This condition is caused by the Streptococcus pyogenes germ. What increases the risk? You are more likely to develop this condition if: ? You care for young children. Children are more likely to get strep throat and may spread it to others. ? You go to crowded places. Germs can spread easily in such places. ? You kiss or touch someone who has strep throat. What are the signs or symptoms? Symptoms of this condition include: ? Fever or chills. ? Redness, swelling, or pain in the tonsils or throat. ? Pain or trouble when swallowing. ? White or yellow spots on the tonsils or throat. ? Tender glands in the neck and under the jaw. ? Bad breath. ? Red rash all over the body. This is rare. How is this treated? This condition may be treated with: ? Medicines that kill germs (antibiotics). ? Medicines that treat pain or fever. These include: ? Ibuprofen or acetaminophen. ? Aspirin, only for patients who are over the age of 18. ? Throat lozenges. ? Throat sprays. Follow these instructions at home: Medicines ? Take [id number] and prescription medicines only as told by your doctor. ? Take your antibiotic medicine as told by your doctor. Do not stop taking the antibiotic even if you start to feel better. Eating and drinking ? If you have trouble swallowing, eat soft foods until your throat feels better. ? Drink enough fluid to keep your pee (urine) pale yellow. ? To help with pain, you may have: ? Warm fluids, such as soup and tea. ? Cold fluids, such as frozen desserts or popsicles. General instructions ? Rinse your mouth (gargle) with a salt-water mixture 3?4 times a day or as needed. To make a salt-water mixture, dissolve ??1 tsp (3?6 g) of salt in 1 cup (237 mL) of warm water. ? Rest as much as you can. ? Stay home from work or school until you have been taking antibiotics for 24 hours. ? Avoid smoking or being around people who smoke. ? Keep all follow-up visits as told by your doctor. This is important. How is this prevented? ? Do not share food, drinking cups, or personal items. They can cause the germs to spread. ? Wash your hands well with soap and water. Make sure that all people in your house wash their hands well. ? Have family members tested if they have a fever or a sore throat. They may need an antibiotic if they have strep throat. Contact a doctor if: ? You have swelling in your neck that keeps getting bigger. ? You get a rash, cough, or earache. ? You cough up a thick fluid that is green, yellow-brown, or bloody. ? You have pain that does not get better with medicine. ? Your symptoms get worse instead of getting better. ? You have a fever. Get help right away if: ? You vomit. ? You have a very bad headache. ? Your neck hurts or feels stiff. ? You have chest pain or are short of breath. ? You have drooling, very bad throat pain, or changes in your voice. ? Your neck is swollen, or the skin gets red and tender. ? Your mouth is dry, or you are peeing less than normal. ? You keep feeling more tired or have trouble waking up. ? Your joints are red or painful. Summary ? Strep throat is an infection of the throat. It is caused by germs (bacteria). ? This infection can spread from person to person through coughing, sneezing, or having close contact. ? Take your medicines, including antibiotics, as told by your doctor. Do not stop taking the antibiotic even if you start to feel better. ? To prevent the spread of germs, wash your hands well with soap and water. Have others do the same. Do not share food, drinking cups, or personal items. ? Get help right away if you have a bad headache, chest pain, shortness of breath, a stiff or painful neck, or you vomit. This information is not intended to replace advice given to you by your health care provider. Make sure you discuss any questions you have with your health care provider. Document Revised: 04/24/2019 Document Reviewed: 04/24/2019 [employer] Patient Education ? 2020 [employer] [facility] Summary Purpose Family History No Family History Records FoundNo Family History Records Found Advance Directives No Advanced Directives Records FoundNo Advanced Directives Records Found Additional Source Comments INFORMATION SOURCE (unrecogn ized section and content) DATE CREATED AUTHOR 04/21/2021 [facility] DATE CREATED AUTHOR AUTHOR'S ORGANMICHELLE ATION 06/12/2021 [facility] FOR RECORDS PERTAINING TO PATIENTS WHO ARE OR HAVE BEEN ENROLLED IN A CHEMICAL DEPENDENCY/SUBSTANCEABUSE PROGRAM, SOME INFORMATION MAY BE OMITTED. This clinical summary was aggregated from multiple sources. Caution should be exercised in using it in the provision of clinical care. This summary normalizes information from multiple sources, and as a consequence, information in this document may materially change the coding, format and clinical context of patient data. In addition, data may be omitted in some cases. CLINICAL DECISIONS SHOULD BE BASED ON THE PRIMARY CLINICAL RECORDS. [facility] [employer] [facility]. provides no warranty or guarantee of the accuracy or completeness of information in this document.
== END 2023-04-04 10:03 | disposition home or self-care (01) ==
LOC: MAMMO 10:02
PROVIDERS: PCP Family Medicine; Visit Provider Family Medicine
DX: N63.0 Unspecified lump in unspecified breast (principal); N63.21 Unspecified lump in the left breast, upper outer quadrant
CPT/HCPCS: 76642; 77065; G0279

== ENCOUNTER 2023-05-16 10:15 | Outpatient (REF) | payer BC, SELFPAY ==
[2023-05-16 11:50] LABS: Influenza Virus A Antigen Negative; Influenza Virus B Antigen Negative; Internal Control Within Normal Limits; SARS-CoV-2 Ag NEGATIVE (NEGATIVE)
[2023-05-16 15:09] LABS: SARS-CoV-2 NAA NOT DETECTED (NOT DETECTE)
== END 2023-05-16 10:16 | disposition home or self-care (01) ==
LOC: LAB 10:15
PROVIDERS: PCP Family Medicine; Visit Provider Family Medicine
DX: J01.90 Acute sinusitis, unspecified (principal)
CPT/HCPCS: 87635; 87804; 87811

== ENCOUNTER 2023-10-14 19:59 | Outpatient (REF) | payer BC, SELFPAY ==
--- OUTSIDE RECORDS SUMMARY | 2023-10-14 20:04 | XMS_ITS | CCD ---
Author Organization [facility] Care Team Providers Care Administrative Technician Name Role Phone LULA, DR LOERA Admitting [...] DR ELLIOTT LISTED Primary Care Unavaila ble WEST, DR NATALIA Cardoza Consulting Unavailable LULA, DR [...] ED Clinical Summaryon 2021 ED Clinical Summary [facility] ? Urgent Care [address] [place] [id number] Clinical Summary PERSON INFORMATION Name: VARUN CAGE Age: 40 Years Sex: FEMALE : 1980 MRN: Acct#: Visit Reason: UC - Cough; SORE THROAT, COUGH, EAR PAIN Arrival: 06/11/2021 10:05:38 Discharge: 06/11/2021 10:44:00 LOS: 000 00:39 Check In: 06/11/2021 10:05:38 Checkout: 06/11/2021 10:44:00 Address: [address] [place], [place] [id number] PCP: GERARDO CORDON PROVIDER INFORMATION Provider Role [...] PATIENT EDUCATION INFORMATION Instructions: Strep Throat, Adult, Jvxm-hb-Ztbs Follow-Up: With: Address: Chris: GERARDO CORDON [address], [place] [address] Business (1) Within 1 week Comments: Please follow-up with Dr. Cordon, call the office and schedule an appointment to be seen in a week or sooner for continued care, take your Zithromax as prescribed, take pdwc-njk-innhocg pain medication as needed, drink plenty of water for hydration, and return back to the urgent care center for any worsening symptoms, concerns, or complications. DIAGNOSIS: 1:Strep pharyngitis Patient Understands: Yes - Patient/family/mary jo leeanna verbalizes understanding of instructions given Comment: Normal [facility] ED Patient Summaryon 022 ED Patient Summary [facility] ? Urgent Care [address] [place], [place] [id number] PATIENT DISCHARGE INSTRUCTIONS Patient Information Name: VARUN CAGE Age: 40 Years Date of : 1980 Reason For Visit: UC - Cough; SORE THROAT, COUGH, EAR PAIN Arrival Time: 06/11/2021 10:05:38 Primary Care Physician: GERARDO CORDON Attending Physician: Cr Cornejo PA-C Comment: Patient Education With: Address: When: GERARDO CORDON [address] [place] [id number] Business (1) Within 1 week Comments: Please follow-up with Dr. Cordon, call the office and schedule an appointment to be seen in a week or sooner for continued care, take your Zithromax as prescribed, take nzjy-fow-kiyivpt pain medication as needed, drink plenty of [...] these instructions at home: Medicines ? Take irde-afs-edqqgqm and prescription medicines only as told by [...] by you (more content not included)... Normal [facility] Recordon 022 Urgent Care Record [facility] ? Urgent Care [address] [place] [address] PATIENT DISCHARGE INSTRUCTIONS Patient Information Name: VARUN CAGE Age: 40 Years Date of : 1980 Reason For Visit: UC - Cough; SORE THROAT, COUGH, EAR PAIN Arrival Time: 06/11/2021 10:05:38 Primary Care Physician: GERARDO CORDON Attending Physician: Cr Cornejo PA-C Comment: Visit Diagnosis: Diagnoses This Visit Strep pharyngitis (J02.0) UC - Cough ([id number]) If you received any narcotics, sedation, or [...] documents With: Address: When: GERARDO CORDON [address], [place] [address] Business (1) Within 1 week Comments: Please follow-up with Dr. Cordon, call the office and schedule an appointment to be seen in a week or sooner for continued care, take your Zithromax as prescribed, take uqjv-rjt-wrtrtey pain medication as needed, drink plenty of water for hydration, and return back to the urgent care center for any worsening symptoms, concerns, or complications. Medication Information: The exam and treatment you received today in the [facility] were for an urgent problem and are not intended as complete care. It is important for you to follow up with a doctor, nurse practitioner, or physician?s therapy assistant for ongoing care. If your symptoms [...] so we can reach you if necessary. [facility] has provided you with a complete list of medications post discharge. 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 Any specific questions regarding your chronic medications and dosages should be discussed with your primary care physician(s) and/or pharmacist. New Medications [facility] [facility], [address] [place], [place] [id number], [phone] azithromycin (Zithromax 500 mg oral tablet) 1 [...] this cond (more content not included)... Normal [facility] GTT 2 HRon 04-19-2021 Glucose [Mass/Vol] 101 mg/dL Normal 74-106 [facility] Comment on above: Performed By: #### D SUSANNAH #### [facility] [address] [address] [address] Jarred Anaya Glucose [Mass/Vol] 127 mg/dL Normal [facility] Comment on above: Performed By: #### D SUSANNAH #### [facility] [address] [address] [address] Jarred Anaya Glucose [Mass/Vol] 113 mg/dL Normal [facility] Comment on above: Performed By: #### Amos DAVALOS #### [facility] [address] [address] [address] Jarred Anaya CORTISOL FREE, TOTAL WITH CB Juan Carlos 02-21-2021 Shankar.Bind.Glob.(CBG) 2.2 mg/dL Normal [facility] Comment on above: Result Comment: This test was developed and its performance characteristics determined by [facility]. It has not been cleared or approved by the Food and Drug Administration. Reference Range: Adults: 1.7 - 3.1 Performed By: #### C ORTFRE #### [facility] [address] [place] [address] Dr. Jarred Anaya Cortisol, Serum LCMS 9.3 ug/dL Normal [facility] Comment on above: Result Comment: This test was developed and its performance characteristics determined by [facility]. It has not been cleared or approved by the Food and Drug Administration. Reference Range: Adults 8:00 AM 8.0 - 19 4:00 PM 4.0 - 11 Performed By: #### C ORTFRE #### [facility] [address] [address] [address] Jarred Anaya Free Cortisol, Serum 0.50 ug/dL Normal [facility] Comment on above: Result Comment: Refe rence Range: Adults 8:00 AM: 0.2 - 1.8 Performed By: #### C ORTFRE #### [facility] [address] [address] [address] Jarred Anaya Percent Free Cortisol, Serum 5.4 % Normal [facility] Comment on above: Result Comment: Refe rence Range: Adults 8:00 am: 2.3 - 9.5 Performed By: #### C ORTFRE #### [facility] [address] [place] [address] Dr. Jarred Anaya REVERSE T3on 02-18-2021 Reverse T3, Serum 16.6 ng/dL Normal 9.2-24.1 [facility] Comment on above: Result Comment: This test was developed and its performance characteristics determined by [facility]. It has not been cleared or approved by the Food and Drug Administration. Performed By: #### R EVRT3 #### [facility] [address] [address] [address] Jarred Anaya SEROTONINon 02-16-2021 Serotonin, Serum 199 ng/mL Normal 0-420 [facility] Comment on above: Performed By: #### S EROTON #### [facility] [address] [address] [address] Jarred Anaya ESTRONEon 02-15-2021 Estrone, Serum 119 pg/mL Normal [facility] Comment on above: Result Comment: Adul t: Follicular phase 39 - 132 Periovulatory 58 - 256 Luteal phase 54 - 179 : 1st trimester 247 - 2774 2nd trimester 569 - 5781 Postmenopausal: with ERT 51 - 488 without ERT 31 - 100 Performed By: #### E STRONE #### [facility] [address] [place] [address] Dr. Jarred Anaya FREE TESTOSTERONEon 02-16-20 21 Free Testosterone(Direct) 1.0 pg/mL Normal 0.0-4.2 [facility] Comment on above: Performed By: #### D HEASUL #### [facility] [address] [place] [address] Dr. Jarred Anaya TESTOSTERONE, FREE,DIRECT, T OTALon 02-15-2021 Free Testosterone(Direct) 1.4 pg/mL Normal 0.0-4.2 [facility] Comment on above: Result Comment: Perf ormed at: BN Performed By: #### F T4 #### [facility] [address] [place] [address] Dr. Jarred Anaya Testosterone [Mass/Vol] 21 ng/dL Normal 4-50 [facility] Comment on above: Result Comment: Perf ormed at: CB Performed By: #### F T4 #### [facility] [address] [place] [address] Dr. Jarred Anaya VIT D 1 25 DIHYDROXYon 02-15 Calcitriol(1,25 di-OH Vit D) 50.7 pg/mL Normal 19.9-79.3 [facility] Comment on above: Performed By: #### F T4 #### [facility] [address] [place] [address] Dr. Jarred Anaya C-PEPTIDE, SERUMon C-Peptide, Serum 3.0 ng/mL Normal 1.1-4.4 [facility] Comment on above: Result Comment: C-Pe ptide reference interval is for fasting patients. Performed By: #### D HEASUL #### [facility] [address] [place] [address] Dr. Jarred Anaya DHEA-SULFATEon 02-14-2021 DHEA-Sulfate 66.6 ug/dL Normal 57.3-279.2 [facility] Comment on above: Performed By: #### D HEASUL #### [facility] [address] [place] [address] Dr. Jarred Anaya ESTRADIOLon 02-14-2021 Estradiol 254.0 pg/mL Normal [facility] Comment on above: Result Comment: Adul t Female: Follicular phase 12.5 - 166.0 Ovulation phase 85.8 - 498.0 Luteal phase 43.8 - 211.0 Postmenopausal <6.0 - 54.7 1st trimester 215.0 - >4300.0 Marty ECLIA methodology Performed By: #### E STRADI #### [facility] [address] [place] [address] Dr. Jarred Anaya FERRITINon 02-14-2021 Ferritin [Mass/Vol] 80 ng/mL Normal 15-150 [facility] Comment on above: Performed By: #### F T4 #### [facility] [address] [place] [address] Dr. Jarred Anaya FREE T3 LABCORPon 02-14-2021 Triiodothyronine (T3) Free 3.2 pg/mL Normal 2.0-4.4 [facility] Comment on above: Performed By: #### F T3LC #### [facility] [address] [place] [address] Dr. Jarred Anaya INSULINon 02-14-2021 Insulin 19.1 uIU/mL Normal 2.6-24.9 [facility] Comment on above: Performed By: #### D SUSANNAH #### [facility] [address] [place] [address] Dr. Jarred Anaya PROGESTERONEon 02-14-2021 Progesterone 10.1 ng/mL Normal [facility] Comment on above: Result Comment: Foll icular phase 0.1 - 0.9 Luteal phase 1.8 - 23.9 Ovulation phase 0.1 - 12.0 First trimester 11.0 - 44.3 Second trimester 25.4 - 83.3 Third trimester 58.7 - 214.0 Postmenopausal 0.0 - 0.1 Performed By: #### Amos DAVALOS #### [facility] [address] [place] [address] Dr. Jarred Anaya SEX HORMONE-BINDING GLOBULIN on 02-14-2021 Sex Horm Binding Glob, Serum 116.0 nmol/L Normal 24.6-122.0 [facility] Comment on above: Performed By: #### F T4 #### [facility] [address] [place] [address] Dr. Jarred Anyaa T3, TOTAL (TRIIODOTHYRONINE) on 02-14-2021 T3, TOTAL 116 ng/dL Normal 71-180 [facility] Comment on above: Performed By: #### F T4 #### [facility] [address] [place] [address] Dr. Jarred Anaya T4 [facility] 02-14-2021 T4 [Mass/Vol] 7.8 ug/dL Normal 4.5-12.0 [facility] Comment on above: Performed By: #### Amos DAVALOS #### [facility] [address] [place] [address] Dr. Jarred Anaya THYROGLOBULIN AB AND THYROGL OBULINon 02-14-2021 Thyroglobulin Antibody <1.0 Normal 0.0-0.9 [facility] Comment on above: Result Comment: Thyr oglobulin Antibody measured by [employer] Methodology Performed By: #### T HYGIMA #### [facility] [address] [place] [address] Dr. Jarred Anaya Thyroglobulin by AMANUEL 15.4 ng/mL Normal 1.5-38.5 [facility] Comment on above: Result Comment: Acco rding [...] 0.1 ng/mL . Thyroglobulin measured by [employer]onal[employer] [place] Immunometric Assay Performed By: #### T HYGIMA #### [facility] [address] [place] [address] Dr. Jarred Anaya THYROID PEROXIDASE ABon 01-19 Thyroid Peroxidase (TPO) Ab <8 Normal 0-34 [facility] Comment on above: Performed By: #### T POAB #### [facility] [address] [place] [address] Dr. Jarred Anaya FREE T4on 02-13-2021 Free T4 [Mass/Vol] 0.97 ng/dL Normal 0.78-2.19 [facility] Comment on above: Performed By: #### F T4 #### [facility] [address] [place] [address] Dr. Jarred Anaya GLUCOSE BLOODon 02-13-2021 Glucose [Mass/Vol] 98 mg/dL Normal 74-106 [facility] Comment on above: Performed By: #### Amos DAVALOS #### [facility] [address] [place] [address] Dr. Jarred Anaya GLYCOHEMOGLOBIN A1Con 2020 ADA RECOMMENDATION ADA THERAPEUTIC TARGET 6.0 - 7.0 ACTION SUGGESTED > 7.0 Normal [facility] Comment on above: Performed By: #### D SUSANNAH #### [facility] [address] [place] [address] Dr. Jarred Anaya Glucose [Mass/Vol] 114 mg/dL Normal [facility] Comment on above: Performed By: #### Amos DAVALOS #### [facility] [address] [place] [address] Dr. Jarred Anaya HbA1c (Bld) [Mass fraction] 5.6 % Normal <=6.0 [facility] Comment on above: Performed By: #### D SUSANNAH #### [facility] [address] [address] [address] Jarred Anaya TSHon 02-13-2021 TSH 2.214 uIU/mL Normal 0.470-4.680 [facility] Comment on above: Performed By: #### D SUSANNAH #### [facility] [address] [address] [address] Jarred Anaya TSH RANGE SEE BELOW Normal [facility] Comment on above: Result Comment: <0.3 4 UIU/ml HYPERTHYROID 0.34-5.60 UIU/ml EUTHYROID >5.60 UIU/ml HYPOTHYROID Performed By: #### D SUSANNAH #### [facility] [address] [place] [address] Dr. Jarred Anaya MAMMO POST BIOPSY LEFTon MAMMO POST BIOPSY LEFT Patient: OG CAGE Exam Date: 12/06/2020 : 1980 Gender:F Ordering : DR LUZ MARIA COTTON . Admission #: [id number] Family : Order #: [id number] CLICK HERE TO VIEW EXAM This report [...] Holguin M.D. on 12/14/2020 at 14:11 Normal [facility] US VAC ASST BX BRST LT W CLI Lucien 12-06-2020 US VAC ASST BX BRST LT W CLIP Patient: VARUN CAGE Exam Date: 12/06/2020 : 1980 Gender:F Ordering : DR LUZ MARIA COTTON . Admission #: [id number] Family : Order #: [id number] CLICK HERE TO VIEW EXAM This report [...] Holguin M.D. on 12/14/2020 at 14:11 Normal [facility] US BREAST LEFT LIMITEDon US BREAST LEFT LIMITED Patient: OG CAGE. Exam Date: 11/16/2020 : 1980 Gender:F Ordering : DR LUZ MARIA COTTON . Admission #: [id number] Family : Order #: [id number] CLICK HERE TO VIEW EXAM RADIOLOGY REPORT [...] Addison MD on 11/18/2020 at 07:30 Normal [facility] MG MAMM SCREEN 3D MRAK CADon 11-04-2020 MG MAMM SCREEN 3D MARK CAD Patient: VARUN CAGE. Exam Date: 11/04/2020 : 1980 Gender:F Ordering : DR LUZ MARIA COTTON . Admission #: [id number] Family : Order #: [id number] CLICK HERE TO VIEW EXAM RADIOLOGY REPORT [...] No Treatments None Family Cancers None LOCATION: [facility] BREAST COMPOSITION: Heterogeneously dense,which may obscure small [...] Holguin M.D. on 11/04/2020 at 15:39 Normal [facility] PAP ACOG PANEL 2: 30 to 65on 10-20-2020 . . Normal [facility] Comment on above: Result Comment: Perf ormed at: WB Performed By: #### F T4 #### [facility] [address] [address] [address] Jarred Anaya Age Gdln ACOG Testing 30-65 Normal [facility] Comment on above: Performed By: #### F T4 #### [facility] [address] [address] [address] Jarred Anaya DIAGNOSIS: Comment Normal [facility] Comment on above: Result Comment: NEGA TIVE FOR INTRAEPITHELIAL LESION OR MALIGNANCY. PREDOMINANCE OF COCCOBACILLI CONSISTENT WITH SHIFT IN VAGINAL AMEENA IS PRESENT. Performed at: WB Performed By: #### F T4 #### [facility] [address] [address] [address] Jarred Anaya HPV Aptima Negative Normal Negative [facility] Comment on above: Result Comment: This nucleic acid amplification test detects fourteen high-risk HPV types (16,18,31,33,35,39,45,51,52,56,58,59,66,68) without differentiation. Performed at: =G Performed By: #### F T4 #### [facility] [address] [address] [address] Jarred Anaya Methodology: Comment Normal [facility] Comment on above: Result Comment: This liquid based ThinPrep(R) pap test was screened with the use of an image guided system. Performed at: WB Performed By: #### F T4 #### [facility] [address] [address] [address] Jarred Anaya Note: Comment Normal [facility] Comment on above: Result Comment: The Pap smear is a screening test designed to aid in the detection of premalignant and malignant conditions of the uterine cervix. It is not a diagnostic procedure and should not be used as the sole means of detecting cervical cancer. Both false-positive and false-negative reports do occur. . Performed at: WB Performed By: #### F T4 #### [facility] [address] [address] [address] Jarred Anaya Performed by: Comment Normal [facility] Comment on above: Result Comment: Kandace Key, Tower Equipment Repairer (ASCP) Performed at: WB Performed By: #### F T4 #### [facility] [address] [address] [address] Jarred Anaya Specimen adequacy: Comment Normal [facility] Comment on above: Result Comment: Sati sfactory for evaluation. Endocervical and/or squamous metaplastic cells (endocervical component) are present. Performed at: WB Performed By: #### F T4 #### [facility] [address] [address] [address] Jarred Anaya Encounters Encounter Date Encounter Type Care Provider Facility Start: 04-19-2021 End: 04-20-[address] LUZ MARIA COTTON Facility:[facility] Start: 02-13-2021 End: 02-14-[address] LUZ MARIA COTTON Facility:[facility] Start: 12-06-2020 End: 12-06-[address] LUZ MARIA COTTON Facility:[facility] Start: 11-16-2020 End: 11-17-[address] LUZ MARIA COTTON Facility:[facility] Start: 11-04-2020 End: 11-05-[address] LUZ MARIA COTTON Facility:[facility] Start: 10-29-2020 Encounter for gyneco logical examination (general) (routine) without abnormal findings DR LUZ MARIA COTTON [facility] Start: 10-17-2020 End: 10-17-[address] LUZ MARIA COTTON Facility:[facility] Start: 10-17-2020 End: 10-17-2020 Encounter for gynecological examination (general) (routine) without abnormal findings DR LUZ MARIA COTTON Facility:[facility] Payers Date Payer Category Payer Unknown [id number] 2.16.84 [id number] 1980 Unknown [id number] 2.16.84 [id number] 1980 Unknown [id number] 2.16.84 [id number] 1980 Unknown [id number] 2.16.84 [id number] 1980 Unknown [id number] 2.16.84 [id number] 1980 Unknown [id number] 2.16.84 [id number] 1960 Unknown [id number] 1960 Unknown [id number] Clinical Note 06-11-2021 Note Date & Type [...] these instructions at home: Medicines ? Take xodu-ree-uyssbgj and prescription medicines only as told by [...] provider. Document Revised: 04/24/2019 Document Reviewed: 04/24/2019 Elsevier Patient Education ? 2020 [employer] [facility] Summary Purpose Family History No Family History Records FoundNo Family History Records Found Advance Directives No Advanced Directives Records FoundNo Advanced Directives Records Found Additional Source Comments INFORMATION SOURCE (unrecogn ized section and content) DATE CREATED AUTHOR 04/21/2021 [facility] DATE CREATED AUTHOR AUTHOR'S ORGANIZ ATION 06/12/2021 [facility] FOR RECORDS PERTAINING TO PATIENTS WHO [...] BE BASED ON THE PRIMARY CLINICAL RECORDS. [facility]. provides no warranty or guarantee of the accuracy or completeness of information in this document.
== END 2023-10-14 20:00 | disposition home or self-care (01) ==
LOC: LAB 19:59
PROVIDERS: PCP Family Medicine; Visit Provider Physician Assistant
DX: Z01.419 Encounter for gynecological examination (general) (routine) without abnormal findings (principal)
CPT/HCPCS: 87624; 88175

== ENCOUNTER 2023-10-24 10:21 | Outpatient (OUT) | payer BC, SELFPAY ==
--- OUTSIDE RECORDS SUMMARY | 2023-10-24 10:39 | XMS_ITS | CCD ---
Author Organization [facility] Care Team Providers Care Motion Picture Commentator Name Role Phone LULA, DR LOERA Admitting Unavailable LULA, DR LOERA Attending Unavailable ULLA, DR LOERA Consulting Unavailable REQUEST, DR ELLIOTT [...] Admitting Unavailable LULA, DR LOERA Attending Unavailable MU, CHRISTOPHER Attending Unavailable Problems Active Problems Problem Classification [...] ED Clinical Summaryon 2021 ED Clinical Summary [facility] ? Urgent Care [address] [place] [address] [id number] Clinical Summary PERSON INFORMATION Name: VARUN CAGE Age: 40 Years Sex: FEMALE : 1980 MRN: Acct#: Visit Reason: UC - Cough; SORE THROAT, COUGH, EAR PAIN Arrival: 06/11/2021 10:05:38 Discharge: 06/11/2021 10:44:00 LOS: 000 00:39 Check In: 06/11/2021 10:05:38 Checkout: 06/11/2021 10:44:00 Address: [address] [place], [place] [id number] PCP: GERARDO CORDON PROVIDER INFORMATION Provider Role Assigned Unassigned Aden RN, Mer[place] ED Nurse 06/11/2021 10:09:40 Cr Cornejo [...] PATIENT EDUCATION INFORMATION Instructions: Strep Throat, Adult, Nhrm-ht-Frww Follow-Up: With: Address: When: GERARDO CORDON [address] [facility], [place] [address] Business (1) Within 1 week Comments: Please follow-up with Dr. Cordon, call the office and schedule an appointment to be seen in a week or sooner for continued care, take your Zithromax as prescribed, take lxzb-kay-xlqpbun pain medication as needed, drink plenty of water for hydration, and return back to the urgent care center for any worsening symptoms, concerns, or complications. DIAGNOSIS: 1:Strep pharyngitis Patient Understands: Yes - Patient/family/mary jo leeanna verbalizes understanding of instructions given Comment: Normal [facility] ED Patient Summaryon 022 ED Patient Summary [facility] ? Urgent Care [address] [place], [place] [id number] PATIENT DISCHARGE INSTRUCTIONS Patient Information Name: VARUN CAGE Age: 40 Years Date of : 1980 Reason For Visit: UC - Cough; SORE THROAT, COUGH, EAR PAIN Arrival Time: 06/11/2021 10:05:38 Primary Care Physician: GERARDO CORDON Attending Physician: Cr Corneoj PA-C Comment: Patient Education With: Address: When: GERARDO CORDON [address] [place] [id number] Business (1) Within 1 week Comments: Please follow-up with Dr. Cordon, call the office and schedule an appointment to be seen in a week or sooner for continued care, take your Zithromax as prescribed, take cksu-iuo-zsjlopt pain medication as needed, drink plenty of [...] these instructions at home: Medicines ? Take xjpq-oog-fzztjhp and prescription medicines only as told by [...] by you (more content not included)... Normal [facility] Recordon 022 Urgent Care Record [facility] ? Urgent Care [address] [place] [address] PATIENT DISCHARGE INSTRUCTIONS Patient Information Name: VARUN CAGE Age: 40 Years Date of : 1980 [facility]: [id number] Reason For Visit: UC - Cough; SORE THROAT, COUGH, EAR PAIN Arrival Time: 06/11/2021 10:05:38 Primary Care Physician: GERARDO CORDON Attending Physician: Cr Cornejo PA-C Comment: Visit Diagnosis: Diagnoses This Visit Strep pharyngitis (J02.0) UC - Cough ([id number]) If you received any narcotics, sedation, or [...] documents With: Address: When: GERARDO CORDON [address] [facility], [place] [address] Business (1) Within 1 week Comments: Please follow-up with Dr. Cordon, call the office and schedule an appointment to be seen in a week or sooner for continued care, take your Zithromax as prescribed, take enyd-uzl-fjqmrol pain medication as needed, drink plenty of water for hydration, and return back to the urgent care center for any worsening symptoms, concerns, or complications. Medication Information: The exam and treatment you received today in the [facility] were for an urgent problem and are not intended as complete care. It is important for you to follow up with a doctor, nurse practitioner, or physician?s pharmacy assistant for ongoing care. If your symptoms [...] so we can reach you if necessary. [facility]gent [facility] has provided you with a complete list of medications post discharge. Please inform your j2ee application developer/provider of your visit and for further instruction on these medications. Any specific questions regarding your chronic medications and dosages should be discussed with your primary care physician(s) and/or pharmacist. New Medications [facility] [facility], [address] [place], [place] [id number], [phone] azithromycin (Zithromax 500 mg oral tablet) 1 [...] this cond (more content not included)... Normal [facility] GTT 2 HRon 04-19-2021 Glucose [Mass/Vol] 101 mg/dL Normal 74-106 [facility] Comment on above: Performed By: #### D SUSANNAH #### [facility] [address] [address] [address] Jarred Anaya Glucose [Mass/Vol] 127 mg/dL Normal [facility] Comment on above: Performed By: #### Amos DAVALOS #### [facility] [address] [address] [address] Jarred Anaya Glucose [Mass/Vol] 113 mg/dL Normal [facility] Comment on above: Performed By: #### Amos DAVALOS #### [facility] [address] [address] [address] Jarred Anaya CORTISOL FREE, TOTAL WITH CB Juan Carlos 02-21-2021 Shankar.Bind.Glob.(CBG) 2.2 mg/dL Normal [facility] Comment on above: Result Comment: This test was developed and its performance characteristics determined by [facility]. It has not been cleared or approved by the Food and Drug Administration. Reference Range: Adults: 1.7 - 3.1 Performed By: #### C ORTFRE #### [facility] [address] [place] [address] Dr. Jarred Anaya Cortisol, Serum LCMS 9.3 ug/dL Normal [facility] Comment on above: Result Comment: This test was developed and its performance characteristics determined by [facility]. It has not been cleared or approved by the Food and Drug Administration. Reference Range: Adults 8:00 AM 8.0 - 19 4:00 PM 4.0 - 11 Performed By: #### C ORTFRE #### [facility] [address] [place] [address] Dr. Jarred Anaya Free Cortisol, Serum 0.50 ug/dL Normal [facility] Comment on above: Result Comment: Refe rence Range: Adults 8:00 AM: 0.2 - 1.8 Performed By: #### C ORTFRE #### [facility] [address] [address] [address] Jarred Anaya Percent Free Cortisol, Serum 5.4 % Normal [facility] Comment on above: Result Comment: Refe rence Range: Adults 8:00 am: 2.3 - 9.5 Performed By: #### C ORTFRE #### [facility] [address] [place] [address] Dr. Jarred Anaya REVERSE T3on 02-18-2021 Reverse T3, Serum 16.6 ng/dL Normal 9.2-24.1 [facility] Comment on above: Result Comment: This test was developed and its performance characteristics determined by [facility]. It has not been cleared or approved by the Food and Drug Administration. Performed By: #### R EVRT3 #### [facility] [address] [address] [address] Jarred Anaya SEROTONINon 02-16-2021 Serotonin, Serum 199 ng/mL Normal 0-420 [facility] Comment on above: Performed By: #### S EROTON #### [facility] [address] [place] [address] Dr. Jarred Anaya ESTRONEon 02-15-2021 Estrone, Serum 119 pg/mL Normal [facility] Comment on above: Result Comment: Adul t: Follicular phase 39 - 132 Periovulatory 58 - 256 Luteal phase 54 - 179 : 1st trimester 247 - 2774 2nd trimester 569 - 5781 Postmenopausal: with ERT 51 - 488 without ERT 31 - 100 Performed By: #### E STRONE #### [facility] [address] [place] [address] Dr. Jarred Anaya FREE TESTOSTERONEon 02-16-20 21 Free Testosterone(Direct) 1.0 pg/mL Normal 0.0-4.2 [facility] Comment on above: Performed By: #### D HEASUL #### [facility] [address] [place] [address] Dr. Jarred Anaya TESTOSTERONE, FREE,DIRECT, T OTALon 02-15-2021 Free Testosterone(Direct) 1.4 pg/mL Normal 0.0-4.2 [facility] Comment on above: Result Comment: Perf ormed at: BN Performed By: #### F T4 #### [facility] [address] [place] [address] Dr. Jarred Anaya Testosterone [Mass/Vol] 21 ng/dL Normal 4-50 [facility] Comment on above: Result Comment: Perf ormed at: CB Performed By: #### F T4 #### [facility] [address] [place] [address] Dr. Jarred Anaya VIT D 1 25 DIHYDROXYon 02-15 Calcitriol(1,25 di-OH Vit D) 50.7 pg/mL Normal 19.9-79.3 [facility] Comment on above: Performed By: #### F T4 #### [facility] [address] [place] [address] Dr. Jarred Anaya C-PEPTIDE, SERUMon C-Peptide, Serum 3.0 ng/mL Normal 1.1-4.4 [facility] Comment on above: Result Comment: C-Pe ptide reference interval is for fasting patients. Performed By: #### D HEASUL #### [facility] [address] [place] [address] Dr. Jarred Anaya DHEA-SULFATEon 02-14-2021 DHEA-Sulfate 66.6 ug/dL Normal 57.3-279.2 [facility] Comment on above: Performed By: #### D HEASUL #### [facility] [address] [place] [address] Dr. Jarred Anaya ESTRADIOLon 02-14-2021 Estradiol 254.0 pg/mL Normal [facility] Comment on above: Result Comment: Adul t Female: Follicular phase 12.5 - 166.0 Ovulation phase 85.8 - 498.0 Luteal phase 43.8 - 211.0 Postmenopausal <6.0 - 54.7 1st trimester 215.0 - >4300.0 Marty ECLIA methodology Performed By: #### E STRADI #### [facility] [address] [place] [address] Dr. Jarred nAaya FERRITINon 02-14-2021 Ferritin [Mass/Vol] 80 ng/mL Normal 15-150 [facility] Comment on above: Performed By: #### F T4 #### [facility] [address] [place] [address] Dr. Jarred Anaya FREE T3 [facility]on 02-14-2021 Triiodothyronine (T3) Free 3.2 pg/mL Normal 2.0-4.4 [facility] Comment on above: Performed By: #### F T3LC #### [facility] [address] [place] [address] Dr. Jarred Anaya INSULINon 02-14-2021 Insulin 19.1 uIU/mL Normal 2.6-24.9 [facility] Comment on above: Performed By: #### D SUSANNAH #### [facility] [address] [place] [address] Dr. Jarred Anaya PROGESTERONEon 02-14-2021 Progesterone 10.1 ng/mL Normal [facility] Comment on above: Result Comment: Foll icular phase 0.1 - 0.9 Luteal phase 1.8 - 23.9 Ovulation phase 0.1 - 12.0 First trimester 11.0 - 44.3 Second trimester 25.4 - 83.3 Third trimester 58.7 - 214.0 Postmenopausal 0.0 - 0.1 Performed By: #### Amos DAVALOS #### [facility] [address] [place] [address] Dr. Jarred Anaya SEX HORMONE-BINDING GLOBULIN on 02-14-2021 Sex Horm Binding Glob, Serum 116.0 nmol/L Normal 24.6-122.0 [facility] Comment on above: Performed By: #### F T4 #### [facility] [address] [place] [address] Dr. Jarred Anaya T3, TOTAL (TRIIODOTHYRONINE) on 02-14-2021 T3, TOTAL 116 ng/dL Normal 71-180 [facility] Comment on above: Performed By: #### F T4 #### [facility] [address] [place] [address] Dr. Jarred Anaya T4 [facility] 02-14-2021 T4 [Mass/Vol] 7.8 ug/dL Normal 4.5-12.0 [facility] Comment on above: Performed By: #### Amos DAVALOS #### [facility] [address] [place] [address] Dr. Jarred Anaya THYROGLOBULIN AB AND THYROGL OBULINon 02-14-2021 Thyroglobulin Antibody <1.0 Normal 0.0-0.9 [facility] Comment on above: Result Comment: Thyr oglobulin Antibody measured by Booster Methodology Performed By: #### T HYGIMA #### [facility] [address] [place] [address] Dr. Jarred Anaya Thyroglobulin by AMANUEL 15.4 ng/mL Normal 1.5-38.5 [facility] Comment on above: Result Comment: Acco rding [...] 0.1 ng/mL . Thyroglobulin measured by Sonali [place] Immunometric Assay Performed By: #### T HYGIMA #### [facility] [address] [place] [address] Dr. Jarred Anaya THYROID PEROXIDASE ABon 01-19 Thyroid Peroxidase (TPO) Ab <8 Normal 0-34 [facility] Comment on above: Performed By: #### T POAB #### [facility] [address] [place] [address] Dr. Jarred Anaya FREE T4on 02-13-2021 Free T4 [Mass/Vol] 0.97 ng/dL Normal 0.78-2.19 [facility] Comment on above: Performed By: #### F T4 #### [facility] [address] [place] [address] Dr. Jarred Anaya GLUCOSE BLOODon 02-13-2021 Glucose [Mass/Vol] 98 mg/dL Normal 74-106 [facility] Comment on above: Performed By: #### Amos DAVALOS #### [facility] [address] [place] [address] Dr. Jarred Anaya GLYCOHEMOGLOBIN A1Con 2020 ADA RECOMMENDATION ADA THERAPEUTIC TARGET 6.0 - 7.0 ACTION SUGGESTED > 7.0 Normal [facility] Comment on above: Performed By: #### Amos DAVALOS #### [facility] [address] [place] [address] Dr. Jarred Anaya Glucose [Mass/Vol] 114 mg/dL Normal [facility] Comment on above: Performed By: #### Amos MATIASUL #### [facility] [address] [address] [address] Jarred Anaya HbA1c (Bld) [Mass fraction] 5.6 % Normal <=6.0 [facility] Comment on above: Performed By: #### D SUSANNAH #### [facility] [address] [place] [address] Dr. Jarred Anaya TSHon 02-13-2021 TSH 2.214 uIU/mL Normal 0.470-4.680 [facility] Comment on above: Performed By: #### D SUSANNAH #### [facility] [address] [place] [address] Dr. Jarred Anaya TSH RANGE SEE BELOW Normal [facility] Comment on above: Result Comment: <0.3 4 UIU/ml HYPERTHYROID 0.34-5.60 UIU/ml EUTHYROID >5.60 UIU/ml HYPOTHYROID Performed By: #### D SUSANNAH #### [facility] [address] [place] [address] Dr. Jarred Anaya MAMMO POST BIOPSY LEFTon MAMMO POST BIOPSY LEFT Patient: OG CAGE Exam Date: 12/06/2020 : 1980 Gender:F Ordering : DR LUZ MARIA COTTON . Admission #: [id number] Family : Order #: [id number] CLICK HERE TO VIEW EXAM This report [...] Holguin M.D. on 12/14/2020 at 14:11 Normal [facility] US VAC ASST BX BRST LT W CLI Lucien 12-06-2020 US VAC ASST BX BRST LT W CLIP Patient: VARUN CAGE Exam Date: 12/06/2020 : 1980 Gender:F Ordering : DR LUZ MARIA COTTON . Admission #: [id number] Family : Order #: [id number] CLICK HERE TO VIEW EXAM This report [...] Holguin M.D. on 12/14/2020 at 14:11 Normal [facility] US BREAST LEFT LIMITEDon US BREAST LEFT LIMITED Patient: OG CAGE Exam Date: 11/16/2020 : 1980 Gender:F Ordering : DR LUZ MARIA COTTON . Admission #: [id number] Family : Order #: [id number] CLICK HERE TO VIEW EXAM RADIOLOGY REPORT [...] Addison MD on 11/18/2020 at 07:30 Normal [facility] MG MAMM SCREEN 3D MARK CADon 11-04-2020 MG MAMM SCREEN 3D MARK CAD Patient: VARUN ACGE Exam Date: 11/04/2020 : 1980 Gender:F Ordering : DR LUZ MARIA COTTON . Admission #: [id number] Family : Order #: [id number] CLICK HERE TO VIEW EXAM RADIOLOGY REPORT [...] Treatments None Family Cancers None LOCATION: [facility] BREAST COMPOSITION: Heterogeneously dense,which may obscure small [...] Holguin M.D. on 11/04/2020 at 15:39 Normal [facility] PAP ACOG PANEL 2: 30 to 65on 10-20-2020 . . Normal [facility] Comment on above: Result Comment: Perf ormed at: WB Performed By: #### F T4 #### [facility] [address] [address] [address] Jarred Anaya Age Gdln ACOG Testing 30-65 Normal [facility] Comment on above: Performed By: #### F T4 #### [facility] [address] [address] [address] Jarred Anaya DIAGNOSIS: Comment Normal [facility] Comment on above: Result Comment: NEGA TIVE FOR INTRAEPITHELIAL LESION OR MALIGNANCY. PREDOMINANCE OF COCCOBACILLI CONSISTENT WITH SHIFT IN VAGINAL AMEENA IS PRESENT. Performed at: WB Performed By: #### F T4 #### [facility] [address] [address] [address] Jarred Anaya HPV Aptima Negative Normal Negative [facility] Comment on above: Result Comment: This nucleic acid amplification test detects fourteen high-risk HPV types (16,18,31,33,35,39,45,51,52,56,58,59,66,68) without differentiation. Performed at: =G Performed By: #### F T4 #### [facility] [address] [place] [address] Dr. Jarred Anaya Methodology: Comment Normal [facility] Comment on above: Result Comment: This liquid based ThinPrep(R) pap test was screened with the use of an image guided system. Performed at: WB Performed By: #### F T4 #### [facility] [address] [place] [address] Dr. Jarred Anaya Note: Comment Normal [facility] Comment on above: Result Comment: The Pap smear is a screening test designed to aid in the detection of premalignant and malignant conditions of the uterine cervix. It is not a diagnostic procedure and should not be used as the sole means of detecting cervical cancer. Both false-positive and false-negative reports do occur. . Performed at: WB Performed By: #### F T4 #### [facility] [address] [place] [address] Dr. Jarred Anaya Performed by: Comment Normal [facility] Comment on above: Result Comment: Kandace Key, Call Person (ASCP) Performed at: WB Performed By: #### F T4 #### [facility] [address] [place] [address] Dr. Jarred Anaya Specimen adequacy: Comment Normal [facility] Comment on above: Result Comment: Sati sfactory for evaluation. Endocervical and/or squamous metaplastic cells (endocervical component) are present. Performed at: WB Performed By: #### F T4 #### [facility] [address] [place] [address] Dr. Jarred Anaya Encounters Encounter Date Encounter Type Care Provider Facility Start: 10-14-2023 End: 10-14-2023 ambulatory CHRISTOPHER DOBBINS Not Available Start: 04-19-2021 End: 04-20-[address] LUZ [...] without abnormal findings DR LUZ MARIA COTTON [facility] Start: 10-17-2020 End: 10-17-[address] LUZ MARIA COTTON Facility:[facility] Start: 10-17-2020 End: 10-17-2020 Encounter for gynecological examination (general) (routine) without abnormal findings DR LUZ MARIA COTTON Facility:[facility] Payers Date Payer Category Payer Unknown [id number] 1980 Unknown [id number] 2.16.84 [id number] 1980 Unknown [id number] 2.16.84 [id number] 1980 Unknown [id number] 2.16.84 [id number] 1980 Unknown [id number] 2.16.84 [id number] 1980 Unknown [id number] 2.16.84 [id number] 1980 Unknown [id number] 2.16.84 [id number] 1980 Unknown [id number] 2.16.84 [id number] 1960 Unknown [id number] 1960 Unknown [id number] Clinical Note 06-11-2021 Note Date & Type [...] these instructions at home: Medicines ? Take bbvu-lhs-peoythz and prescription medicines only as told by [...] provider. Document Revised: 04/24/2019 Document Reviewed: 04/24/2019 [employer] Patient Education ? 2020 [employer] [facility] Summary Purpose Family History No Family History Records FoundNo Family History Records FoundNo Family History Records Found Advance Directives No Advanced Directives Records FoundNo Advanced Directives Records FoundNo Advanced Directives Records Found Additional Source Comments INFORMATION SOURCE (unrecogn ized section and content) DATE CREATED AUTHOR 04/21/2021 [facility] DATE CREATED AUTHOR AUTHOR'S ORGANIZ ATION 06/12/2021 [facility] DATE CREATED AUTHOR AUTHOR'S ORGANIZ ATION 10/15/2023 [facility] EPIC FOR RECORDS PERTAINING TO PATIENTS WHO ARE [...] BE BASED ON THE PRIMARY CLINICAL RECORDS. [facility] [employer] provides no warranty or guarantee of the accuracy or completeness of information in this document.
[2023-10-24 11:12] LABS: Estimated Average Glucose 111 mg/dL; Glycohemoglobin A1C 5.5 % (4.5-6.2)
[2023-10-24 12:01] LABS: Thyroid Stimulating Hormone 1.849 uIU/mL (0.358-3.740)
[2023-10-24 12:25] LABS: Free T4 0.97 ng/dL (0.76-1.46)
[2023-10-25 10:10] LABS: Sex Horm Binding Glob, Serum 97.4 nmol/L (24.6-122.0)
[2023-10-25 12:09] LABS: Progesterone <0.1 ng/mL (.)
[2023-10-26 09:09] LABS: Estradiol 39.3 pg/mL (.)
[2023-10-28 12:08] LABS: Free Testosterone(Direct) 0.2 pg/mL (0.0-4.2); Testosterone 7 ng/dL (4-50)
== END 2023-10-24 10:22 | disposition home or self-care (01) ==
PROVIDERS: Visit Provider Obstetrics & Gynecology
DX: R68.82 Decreased libido (principal); E34.9 Endocrine disorder, unspecified
CPT/HCPCS: 36415; 82670; 83036; 84144; 84270; 84402; 84403; 84436; 84439; 84443

== ENCOUNTER 2024-04-16 10:15 | Outpatient (OUT) | payer BC, SELFPAY ==
--- NOTE | 2024-04-16 10:16 | MM_ITS ---
Patient Name: VARUN VANEGAS MR#: [id number] : 1980 Exam Date: 04/16/2024 Ordering Doctor: DR Nathanael Cordon . RADIOLOGY REPORT PROCEDURE: MM TOMOSYNTHESIS SCREENING BI COMPARISON: MM TOMOSYNTHESIS DIAGNOSTIC LT, 04/04/2023. MM POST BIOPSY LT, 10/01/2022. MM TOMOSYNTHESIS DIAGNOSTIC BI, 09/24/2022. MAMMO POST BIOPSY LEFT, 12/06/2020. INDICATIONS: Screening Calculator Name NCI Breast Cancer Risk Assessment Tool 5 Year Breast Cancer Risk 1.80% Lifetime Breast Cancer Risk 13.60% Personal Breast Cancer No Personal Ovarian Cancer No Treatments None Family Cancers None LOCATION: [facility] BREAST COMPOSITION: The breasts are heterogeneously dense,which may obscure small masses. FINDINGS: DIAGNOSTIC CATEGORY 0--INCOMPLETE: NEED ADDITIONAL IMAGING EVALUATION. Focal asymmetry retroareolar plane right breast, anterior depth. Asymmetry retroareolar plane left breast CC view only middle depth. RECOMMENDATIONS: ADDITIONAL MAMMOGRAPHIC VIEWS REQUIRED: BILATERAL BREASTS - spot-compression/true lateral views. ULTRASOUND: BILATERAL BREASTS if needed PLEASE NOTE: A NORMAL MAMMOGRAM DOES NOT EXCLUDE THE POSSIBILITY OF BREAST CANCER. A CLINICALLY SUSPICIOUS PALPABLE LUMP SHOULD BE BIOPSIED. Dictated by: Ronan Padron DO on 04/16/2024 at 12:07 Approved by: Ronan Padron DO on 04/16/2024 at 12:19
--- OUTSIDE RECORDS SUMMARY | 2024-04-16 10:25 | XMS_ITS | CCD ---
Author Organization [facility] Care Team Providers Care Senior Net Programmer Name Role Phone DANIEL, DR LOERA Admitting Unavailable DANIEL, DR LOERA Attending Unavailable DANIEL, DR LOERA Consulting Unavailable REQUEST, DR ELLIOTT LISTED Primary Care Unavaila ble DANIEL, DR LOERA Admitting Unavailable DANIEL, DR LOERA Attending Unavailable DANIEL, DR LOERA Consulting Unavailable REQUEST, DR ELLIOTT LISTED Primary Care Unavaila ble ZIEBER, DR URIEL Powell Consulting Unavailable DANIEL, DR LOERA Admitting Unavailable REQUEST, DR ELLIOTT LISTED Primary Care Unavaila ble [place], DR NATALIA Cardoza Consulting Unavailable DANIEL, DR LOERA Attending Unavailable DANIEL, DR LOERA Consulting Unavailable DANIEL, DR LOERA Admitting Unavailable REQUEST, DR ELLIOTT LISTED Primary Care Unavaila ble DANIEL, DR LOERA Attending Unavailable DANIEL, DR LOERA Consulting Unavailable ZIEBER, DR URIEL Powell Consulting Unavailable DANIEL, DR LOERA Admitting Unavailable DANIEL, DR LOERA Attending Unavailable DANIEL, DR LOERA Consulting Unavailable DANIEL, DR LOERA Primary Care Unavailable DANIEL, DR LOERA Consulting Unavailable HOY, DR CARRILLO Primary Care Unavailable DANIEL, DR LOERA Admitting Unavailable DANIEL, DR LOERA Attending Unavailable Unavailable Primary Care Provider UnavailTERESA Dowling Attending Unavailable DANIEL, LUZ MARIA Attending Unavailable DANIEL, LUZ MARIA Attending Unavailable TERESA DOBBINS Attending Unavailable Medications Current Medications Medication Drug Class(es) Dates Sig (Normalized) Sig (Original) acyclovir 400 mg oral tablet (12 sources) Herpesvirus Nucleoside Analog DNA Polymerase Inhibitor, Herpes Simplex Virus Nucleoside Analog DNA Polymerase Inhibitor, Herpes Zoster Virus Nucleoside Analog DNA Polymerase Inhibitor Start: 12-05-2023 End: 12-15-2023 take 1 tablet by mouth once in the morning, then take 1 tablet by mouth in the evening, then take 1 tablet by mouth at bedtime acyclovir (Zovirax) 400 MG tablet Indications: H/O cold sores Take 1 tablet (400 mg) by mouth in the morning and 1 tablet (400 mg) in the evening and 1 tablet (400 mg) before bedtime. Do all this for 10 days. 30 tablet 2 12/05/2023 12/15/2023 Active End: 12-05-2023 take 2 tablets by mouth five times daily acyclovir (Zovirax) 400 MG tablet take 2 tablet by oral route 5 times every day for 10 days Oral 12/05/2023 Discontinued dexamethasone 6 mg oral tablet (10 sources) Corticosteroid Start: 05-16-2023 End: 12-05-2023 take 1 tablet by mouth once daily dexAMETHasone (Decadron) 6 MG tablet Take 6 mg by mouth Daily 05/16/2023 12/05/2023 Discontinued 24 hr metFORMIN hydrochloride 500 mg extended release oral tablet (6 sources) Biguanide Start: 11-07-2023 End: 12-07-2023 take 1 tablet by mouth every twenty-four hours at mealtime metFORMIN XR (Glucophage-XR) 500 MG 24 hr tablet Indications: Insulin resistance Take 1 tablet (500 mg) by mouth in the evening. Take with meals Do not crush, chew, or split. 30 tablet 11 11/07/2023 12/05/2023 Discontinued (Other) phentermine hydrochloride 37.5 mg oral tablet (5 sources) Sympathomimetic Amine Anorectic Start: 12-05-2023 End: 02-01-2024 take 1 tablet by mouth before mealtime phentermine (Adipex-P) 37.5 MG tablet Indications: Encounter for weight management Take 1 tablet (37.5 mg) by mouth in the morning. Take before meals. 30 tablet 01/02/2024 02/01/2024 Active Problems Active Problems Problem Classification Problem Date Documented Da te Episodic/Chronic Administrative/social admission (7 sources) Patient encounter status; Translations: [Persons encountering health services in other specified circumstances] Onset: 12-05-2023 12-05-2023 Episodic Malaise and fatigue (4 sources) Other fatigue; Translations: [OTHER FATIGUE] Onset: 04-19-2021 Episodic Nonmalignant breast conditions (1 source) Diffuse cystic mastopathy of left breast; Translations: [DIFFUSE CYSTIC MASTOPATHY LT BREAST] Onset: 12-15-2020 Chronic Other endocrine disorders (4 sources) Endocrine disorder, unspecified; Translations: [ENDOCRINE DISORDER UNSPECIFIED] Onset: 02-13-2021 Episodic Other infections; including parasitic (6 sources) H/O: viral illness; Translations: [Personal history of other infectious and parasitic diseases] Onset: 12-05-2023 12-05-2023 Episodic Other nutritional; endocrine; and metabolic disorders (10 sources) Insulin resistance; Translations: [Insulin resistance] Onset: 11-07-2023 11-07-2023 Chronic Other screening for suspected conditions (not mental disorders or infectious disease) (16 sources) Encounter for screening mammogram for malignant neoplasm of breast; Translations: [Decreased testosterone level ] Onset: 11-04-2020 Episodic Residual codes; unclassified (11 sources) Reduced libido; Translations: [Decreased libido] Onset: 10-24-2023 10-24-2023 Episodic Past or Other Problems Problem Classification Problem Date Documented Date Episodic/Chronic Immunizations and screening for infectious disease (1 source) Encounter for screening for human papillomavirus (HPV); Translations: [ENC SCREENING HUMAN PAPILLOMAVIRUS] Onset: 10-29-2020 Episodic Nonmalignant breast conditions (8 sources) Unspecified lump in the left breast, upper outer quadrant; Translations: [Unspecified lump in the left breast, unspecified quadrant] Onset: 11-16-2020 Episodic Results Test Name Value Interpretation Reference Range Facility [facility] HEMOGLOBIN A1Con 024 Glucose [Mass/Vol] 111 mg/dL [facility] HbA1c (Bld) [Mass fraction] 5.5 % 4.5 - 6.2 % [facility] Comment on above: ADA RECOMMENDED LIMI T 4.0 - 6.0 ADA THERAPEUTIC TARGET < 7.0 ACTION SUGGESTED > 7.0 [facility] IGP,APTIMA HPV,AGE GDLNon AGE GDLN ACOG TESTING Note . [facility] Comment on above: TESTS RESULT FLAG U NITS REF RANGE LAB Clinician Provided Cytology Information Source.............Cervix;Endocervix No. of containers..01 ThinPrep Vial Age Joshua TRISTAN [place]... FLAG LEGEND: L-Low Normal,H-High Normal,LL-Alert Low,HH-Alert High <-Panic Low,>-Panic High,A-Abnormal,AA-Critical Abnormal Performed at: 01 =[address] [phone] Lynn Sandy MD, HPV APTIMA Negative Negative [facility] Comment on above: This nucleic acid am plification test detects fourteen high- risk HPV types (16,18,31,33,35,39,45,51,52,56,58,59,66,68) without differentiation. Performed at: =[address] [id number] Collection Manager: Lynn Sandy MD, Phone: [phone] Performed at: [address] [id number] Collection Manager: Lynn Sandy MD, Phone: [phone] IGP, APTIMA HPV, RFX 16/18,45 Note . [facility] Comment on above: TESTS RESULT FLAG UN ITS REF RANGE LAB DIAGNOSIS: 02 NEGATIVE FOR INTRAEPITHELIAL LESION OR MALIGNANCY. CELLULAR CHANGES ASSOCIATED WITH INFLAMMATION ARE PRESENT. Specimen adequacy: 02 Satisfactory for evaluation. Endocervical and/or squamous metaplastic cells (endocervical component) are present. Performed by: 02 Saniya Madison Upsetting Machine Operator ([facility]) . 02 Note: Note 02 The Pap smear is a screening test designed to aid in the detection of premalignant and malignant conditions of the uterine cervix. It is not a diagnostic procedure and should not be used as the sole means of detecting cervical cancer. Both false-positive and false-negative reports do occur. Test Methodology: Note 02 This liquid based ThinPrep(R) pap test was screened with the use of an image guided system. HPV Genotype Reflex Note 02 Criteria not met, HPV Genotype not performed. FLAG LEGEND: L-Low Normal,H-High Normal,LL-Alert Low,HH-Alert High <-Panic Low,>-Panic High,A-Abnormal,AA-Critical Abnormal Performed at: [address] [phone] Lynn Sandy MD, BRUSH-SPATULA CERVIX ENDOCERVIX [facility] ED Clinical Summaryon 2021 ED Clinical Summary [facility] ? Urgent Care [address] [place] [address] [id number] Clinical Summary PERSON INFORMATION Name: PEPPER CAGE Age: 40 Years Sex: FEMALE : 1980 MRN: Acct#: Visit Reason: UC - Cough; SORE THROAT, COUGH, EAR PAIN Arrival: 06/11/2021 10:05:38 Discharge: 06/11/2021 10:44:00 LOS: 000 00:39 Check In: 06/11/2021 10:05:38 Checkout: 06/11/2021 10:44:00 Address: [address] [place] [id number] PCP: GERARDO CORDON PROVIDER INFORMATION Provider Role [...] PATIENT EDUCATION INFORMATION Instructions: Strep Throat, Adult, Polx-zk-Yjcs Follow-Up: With: Address: When: GERARDO VYASTrue [address] [place] [id number] Business (1) Within 1 week Comments: Please follow-up with Dr. Cordon, call the office and schedule an appointment to be seen in a week or sooner for continued care, take your Zithromax as prescribed, take pthn-jzu-keovgtc pain medication as needed, drink plenty of water for hydration, and return back to the urgent care center for any worsening symptoms, concerns, or complications. DIAGNOSIS: 1:Strep pharyngitis Patient Understands: Yes - Patient/family/caregi leeanna verbalizes understanding of instructions given Comment: Normal [facility] ED Patient Summaryon 022 ED Patient Summary [facility] ? Urgent Care [address] [place] [id number] PATIENT DISCHARGE INSTRUCTIONS Patient Information Name: PEPPER CAGE Age: 40 Years Date of : 1980 Reason For Visit: UC - Cough; SORE THROAT, COUGH, EAR PAIN Arrival Time: 06/11/2021 10:05:38 Primary Care Physician: GERARDO CORDON Attending Physician: Cr Cornejo PA-C Comment: Patient Education With: Address: When: GERARDO CORDON [address] [place] [phone] Business (1) Within 1 week Comments: Please follow-up with Dr. Cordon, call the office and schedule an appointment to be seen in a week or sooner for continued care, take your Zithromax as prescribed, take orli-bbi-urcbrjn pain medication as needed, drink plenty of [...] these instructions at home: Medicines ? Take bolh-jkw-ierwlii and prescription medicines only as told by [...] by you (more content not included)... Normal [facility] Recordon 022 Urgent Care Record [facility] ? Urgent Care [address] [place] [id number] PATIENT DISCHARGE INSTRUCTIONS Patient Information Name: PEPPER CAGE Age: 40 Years Date of : 1980 Reason For Visit: UC - Cough; SORE THROAT, COUGH, EAR PAIN Arrival Time: 06/11/2021 10:05:38 Primary Care Physician: GERARDO CORDON Attending Physician: Cr Cornejo PA-C Comment: Visit Diagnosis: Diagnoses This Visit Strep pharyngitis (J02.0) UC - Cough ([id number]) If you received any narcotics, sedation, or [...] legal documents With: Address: When: GERARDO CORDON [address] [place] [id number] Business (1) Within 1 week Comments: Please follow-up with Dr. Cordon, call the office and schedule an appointment to be seen in a week or sooner for continued care, take your Zithromax as prescribed, take zhcz-myf-rpfltdl pain medication as needed, drink plenty of water for hydration, and return back to the urgent care center for any worsening symptoms, concerns, or complications. Medication Information: The exam and treatment you received today in the [facility] were for an urgent problem and are not intended as complete care. It is important for you to follow up with a doctor, nurse practitioner, or physician?s certified medical assistant for ongoing care. If your symptoms [...] so we can reach you if necessary. [facility] has provided you with a complete list of medications post discharge. Please inform your manager primary/provider of your visit and for further instruction on these medications. Any specific questions regarding your chronic medications and dosages should be discussed with your primary care physician(s) and/or pharmacist. New Medications [facility] [facility], [address], [place] [id number], [phone] azithromycin (Zithromax 500 mg oral tablet) 1 [...] this cond (more content not included)... Normal [facility] GTT 2 HRon 04-19-2021 Glucose [Mass/Vol] 101 mg/dL Normal 74-106 [facility] Comment on above: Performed By: #### D SUSANNAH #### [facility] [address] [place] [address] Dr. Jarred Anaya Glucose [Mass/Vol] 127 mg/dL Normal [facility] Comment on above: Performed By: #### D SUSANNAH #### [facility] [address] [place] [address] Dr. Jarred Anaya Glucose [Mass/Vol] 113 mg/dL Normal [facility] Comment on above: Performed By: #### D SUSANNAH #### [facility] [address] [place] [address] Dr. Jarred Anaya CORTISOL FREE, TOTAL WITH CB Juan Carlos 02-21-2021 Shankar.Bind.Glob.(CBG) 2.2 mg/dL Normal [facility] Comment on above: Result Comment: This test was developed and its performance characteristics determined by [employer]. It has not been cleared or approved by the Food and Drug Administration. Reference Range: Adults: 1.7 - 3.1 Performed By: #### C ORTFRE #### [facility] [address] [place] [address] Dr. Jarred Anaya Cortisol, Serum LCMS 9.3 ug/dL Normal [facility] Comment on above: Result Comment: This test was developed and its performance characteristics determined by [employer] It has not been cleared or approved by the Food and Drug Administration. Reference Range: Adults 8:00 AM 8.0 - 19 4:00 PM 4.0 - 11 Performed By: #### C ORTFRE #### [facility] [address] [place] [address] Dr. Jarred Anaya Free Cortisol, Serum 0.50 ug/dL Normal [facility] Comment on above: Result Comment: Refe rence Range: Adults 8:00 AM: 0.2 - 1.8 Performed By: #### C ORTFRE #### [facility] [address] [place] [address] Dr. Jarred Anyaa Percent Free Cortisol, Serum 5.4 % Normal [facility] Comment on above: Result Comment: Refe rence Range: Adults 8:00 am: 2.3 - 9.5 Performed By: #### C ORTFRE #### [facility] [address] [place] [address] Dr. Jarred Anaya REVERSE T3on 02-18-2021 Reverse T3, Serum 16.6 ng/dL Normal 9.2-24.1 [facility] Comment on above: Result Comment: This test was developed and its performance characteristics determined by [employer] It has not been cleared or approved by the Food and Drug Administration. Performed By: #### R EVRT3 #### [facility] [address] [place] [address] Dr. Jarred Anaya SEROTONINon 02-16-2021 Serotonin, Serum 199 ng/mL Normal 0-420 [facility] Comment on above: Performed By: #### S EROTON #### [facility] [address] [place] [address] Dr. Jarred Anaya ESTRONEon 02-15-2021 Estrone, Serum 119 pg/mL Normal [facility] Comment on above: Result Comment: Adul t: Follicular phase 39 - 132 Periovulatory 58 - 256 Luteal phase 54 - 179 : 1st trimester 247 - 2774 2nd trimester 569 - 5740 Postmenopausal: with ERT 51 - 488 without ERT 31 - 100 Performed By: #### E STRONE #### [facility] [address] [place] [address] Dr. Jarred Anaya FREE TESTOSTERONEon 02-16-20 21 Free Testosterone(Direct) 1.0 pg/mL Normal 0.0-4.2 [facility] Comment on above: Performed By: #### D SUSANNAH #### [facility] [address] [place] [address] Dr. Jarred Anaya TESTOSTERONE, FREE,DIRECT, T OTALon 02-15-2021 Free Testosterone(Direct) 1.4 pg/mL Normal 0.0-4.2 [facility] Comment on above: Result Comment: Perf ormed at: BN Performed By: #### F T4 #### [facility] [address] [place] [address] Dr. Jarred Anaya Testosterone [Mass/Vol] 21 ng/dL Normal 4-50 [facility] Comment on above: Result Comment: Perf ormed at: CB Performed By: #### F T4 #### [facility] [address] [place] [address] Dr. Jarred Anaya VIT D 1 25 DIHYDROXYon 02-15 Calcitriol(1,25 di-OH Vit D) 50.7 pg/mL Normal 19.9-79.3 [facility] Comment on above: Performed By: #### F T4 #### [facility] [address] [place] [address] Dr. Jarred Anaya C-PEPTIDE, SERUMon C-Peptide, Serum 3.0 ng/mL Normal 1.1-4.4 [facility] Comment on above: Result Comment: C-Pe ptide reference interval is for fasting patients. Performed By: #### D FLORENCIOUL #### [facility] [address] [place] [address] Dr. Jarred Anaya DHEA-SULFATEon 02-14-2021 DHEA-Sulfate 66.6 ug/dL Normal 57.3-279.2 [facility] Comment on above: Performed By: #### D FLORENCIOUL #### [facility] [address] [place] [address] Dr. Jarred Anaya ESTRADIOLon 02-14-2021 Estradiol 254.0 pg/mL Normal [facility] Comment on above: Result Comment: Adul t Female: Follicular phase 12.5 - 166.0 Ovulation phase 85.8 - 498.0 Luteal phase 43.8 - 211.0 Postmenopausal <6.0 - 54.7 1st trimester 215.0 - >4300.0 Marty ECLIA methodology Performed By: #### E DEREJE #### [facility] [address] [place] [address] Dr. Jarred Anaya FERRITINon 02-14-2021 Ferritin [Mass/Vol] 80 ng/mL Normal 15-150 [facility] Comment on above: Performed By: #### F T4 #### [facility] [address] [place] [address] Dr. Jarred Anaya FREE T3 LABCORPon 02-14-2021 Triiodothyronine (T3) Free 3.2 pg/mL Normal 2.0-4.4 [facility] Comment on above: Performed By: #### F T3LC #### [facility] [address] [place] [address] Dr. Jarred Anaya INSULINon 02-14-2021 Insulin 19.1 uIU/mL Normal 2.6-24.9 [facility] Comment on above: Performed By: #### Amos DAVALOS #### [facility] [address] [place] [address] Dr. Jarred Anaya PROGESTERONEon 02-14-2021 Progesterone 10.1 ng/mL Normal [facility] Comment on above: Result Comment: Foll icular phase 0.1 - 0.9 Luteal phase 1.8 - 23.9 Ovulation phase 0.1 - 12.0 First trimester 11.0 - 44.3 Second trimester 25.4 - 83.3 Third trimester 58.7 - 214.0 Postmenopausal 0.0 - 0.1 Performed By: #### Amos DAVALOS #### [facility] [address] [place] [address] Dr. Jarred Anaya SEX HORMONE-BINDING GLOBULIN on 02-14-2021 Sex Horm Binding Glob, Serum 116.0 nmol/L Normal 24.6-122.0 [facility] Comment on above: Performed By: #### F T4 #### [facility] [address] [place] [address] Dr. Jarred Anaya T3, TOTAL (TRIIODOTHYRONINE) on 02-14-2021 T3, TOTAL 116 ng/dL Normal 71-180 [facility] Comment on above: Performed By: #### F T4 #### [facility] [address] [place] [address] Dr. Jarred Anaya T4 [facility] 02-14-2021 T4 [Mass/Vol] 7.8 ug/dL Normal 4.5-12.0 [facility] Comment on above: Performed By: #### D HEASUL #### [facility] [address] [place] [address] Dr. Jarred Anaya THYROGLOBULIN AB AND THYROGL OBULINon 02-14-2021 Thyroglobulin Antibody <1.0 Normal 0.0-0.9 [facility] Comment on above: Result Comment: Thyr oglobulin Antibody measured by Sonali Pau Methodology Performed By: #### T HYGIMA #### [facility] [address] [place] [address] Dr. Jarred Anaya Thyroglobulin by AMANUEL 15.4 ng/mL Normal 1.5-38.5 [facility] Comment on above: Result Comment: Acco rding [...] 0.1 ng/mL . Thyroglobulin measured by Sonali Pau Immunometric Assay Performed By: #### T HYGIMA #### [facility] [address] [place] [address] Dr. Jarred Anaya THYROID PEROXIDASE ABon 01-19 Thyroid Peroxidase (TPO) Ab <8 Normal 0-34 [facility] Comment on above: Performed By: #### T POAB #### [facility] [address] [place] [address] Dr. Jarred Anaya FREE T4on 02-13-2021 Free T4 [Mass/Vol] 0.97 ng/dL Normal 0.78-2.19 [facility] Comment on above: Performed By: #### F T4 #### [facility] [address] [address] [address] Jarred Anaya GLUCOSE BLOODon 02-13-2021 Glucose [Mass/Vol] 98 mg/dL Normal 74-106 [facility] Comment on above: Performed By: #### Amos DAVALOS #### [facility] [address] [address] [address] Jarred Anaya GLYCOHEMOGLOBIN A1Con 2020 ADA RECOMMENDATION ADA THERAPEUTIC TARGET 6.0 - 7.0 ACTION SUGGESTED > 7.0 Normal [facility] Comment on above: Performed By: #### Amos DAVALOS #### [facility] [address] [address] [address] Jarred Anaya Glucose [Mass/Vol] 114 mg/dL Normal [facility] Comment on above: Performed By: #### Amos DAVALOS #### [facility] [address] [address] [address] Jarred Anaya HbA1c (Bld) [Mass fraction] 5.6 % Normal <=6.0 [facility] Comment on above: Performed By: #### Amos DAVALOS #### [facility] [address] [place] [address] Dr. Jarred Anaya TSHon 02-13-2021 TSH 2.214 uIU/mL Normal 0.470-4.680 [facility] Comment on above: Performed By: #### Amos DAVALOS #### [facility] [address] [place] [address] Dr. Jarred Anaya TSH RANGE SEE BELOW Normal [facility] Comment on above: Result Comment: <0.3 4 UIU/ml HYPERTHYROID 0.34-5.60 UIU/ml EUTHYROID >5.60 UIU/ml HYPOTHYROID Performed By: #### Amos DAVALOS #### [facility] [address] [place] [address] Dr. Jarred Anaya MAMMO POST BIOPSY LEFTon MAMMO POST BIOPSY LEFT Patient: NILES PEPPER Gema Exam Date: 12/06/2020 : 1980 Gender:F Ordering : DR LUZ MARIA SANCHEZ . Admission #: [id number] Family : Order #: [id number] CLICK HERE TO VIEW EXAM This report [...] Holguin M.D. on 12/14/2020 at 14:11 Normal [facility] US VAC ASST BX BRST LT W CLI Lucien 12-06-2020 US VAC ASST BX BRST LT W CLIP Patient: PEPPER CAGE Exam Date: 12/06/2020 : 1980 Gender:F Ordering : DR LUZ MARIA SANCHEZ . Admission #: [id number] Family : Order #: [id number] CLICK HERE TO VIEW EXAM This report [...] Holguin M.D. on 12/14/2020 at 14:11 Normal [facility] US BREAST LEFT LIMITEDon US BREAST LEFT LIMITED Patient: PEPPER CAGE Exam Date: 11/16/2020 : 1980 Gender:F Ordering : DR LUZ MARIA SANCHEZ . Admission #: [id number] Family : Order #: [id number] CLICK HERE TO VIEW EXAM RADIOLOGY REPORT [...] Addison MD on 11/18/2020 at 07:30 Normal [facility] MG MAMM SCREEN 3D MARK CADon 11-04-2020 MG MAMM SCREEN 3D MARK CAD Patient: PEPPER CAGE Exam Date: 11/04/2020 : 1980 Gender:F Ordering : DR LUZ MARIA SANCHEZ . Admission #: [id number] Family : Order #: [id number] CLICK HERE TO VIEW EXAM RADIOLOGY REPORT [...] Treatments None Family Cancers None LOCATION: [facility] BREAST COMPOSITION: Heterogeneously dense,which may obscure small [...] Holguin M.D. on 11/04/2020 at 15:39 Normal [facility] PAP ACOG PANEL 2: 30 to 65on 10-20-2020 . . Normal [facility] Comment on above: Result Comment: Perf ormed at: WB Performed By: #### F T4 #### [facility] [address] [address] [address] Jarred Anaya Age Gdln ACOG Testing 30-65 Normal [facility] Comment on above: Performed By: #### F T4 #### [facility] [address] [address] [address] Jarred Anaya DIAGNOSIS: Comment [facility] [facility] Comment on above: Result Comment: NEGA TIVE FOR INTRAEPITHELIAL LESION OR MALIGNANCY. PREDOMINANCE OF COCCOBACILLI CONSISTENT WITH SHIFT IN VAGINAL AMEENA IS PRESENT. Performed at: WB Performed By: #### F T4 #### [facility] [address] [address] [address] Jarred Anaya HPV Aptima Negative Normal Negative [facility] Comment on above: Result Comment: This nucleic acid amplification test detects fourteen high-risk HPV types (16,18,31,33,35,39,45,51,52,56,58,59,66,68) without differentiation. Performed at: =G Performed By: #### F T4 #### [facility] [address] [place] [address] Dr. Jarred Anaya Methodology: Comment Normal [facility] Comment on above: Result Comment: This liquid based ThinPrep(R) pap test was screened with the use of an image guided system. Performed at: WB Performed By: #### F T4 #### [facility] [address] [place] [address] Dr. Jarred Anaya Note: Comment Normal [facility] Comment on above: Result Comment: The Pap smear is a screening test designed to aid in the detection of premalignant and malignant conditions of the uterine cervix. It is not a diagnostic procedure and should not be used as the sole means of detecting cervical cancer. Both false-positive and false-negative reports do occur. . Performed at: WB Performed By: #### F T4 #### [facility] [address] [place] [address] Dr. Jarred Anaya Performed by: Comment Normal [facility] Comment on above: Result Comment: Kandace Key, Upsetting Machine Operator (ASCP) Performed at: WB Performed By: #### F T4 #### [facility] [address] [place], [place] [address] Dr. Jarred Anaya Specimen adequacy: Comment Normal [facility] Comment on above: Result Comment: Sati sfactory for evaluation. Endocervical and/or squamous metaplastic cells (endocervical component) are present. Performed at: WB Performed By: #### F T4 #### [facility] [address] [place], [place] [address] Dr. Jarred Anaya Vital Signs Date Time Vital Sign Value Performing Clinician Faci lity 01-02-2024 08:46-0500 Body mass index (BMI) [Ratio] 31.48 kg/m2 Teresa LOZANO Work Phone: [facility] 01-02-2024 08:46-0500 Body weight 83.19 kg Teresa LOZANO Work Phone: [facility] 01-02-2024 08:46-0500 Diastolic blood pressure 70 mm[Hg] Teresa LOZANO Work Phone: [facility] 01-02-2024 08:46-0500 Systolic blood pressure 120 mm[Hg] Teresa LOZANO Work Phone: [facility] 12-05-2023 08:55-0400 Body height 162.6 cm Luz Maria Daniel DO Work Phone: [facility] 12-05-2023 08:55-0400 Body mass index (BMI) [Ratio] 32.1 kg/m2 Luz Maria Daniel DO Work Phone: [facility] 12-05-2023 08:55-0400 Body weight 84.82 kg Luz Maria Daniel DO Work Phone: [facility] 12-05-2023 08:55-0400 Diastolic blood pressure 76 mm[Hg] Luz Maria Daniel DO Work Phone: [facility] 12-05-2023 08:55-0400 Systolic blood pressure 118 mm[Hg] Luz Maria Daniel DO Work Phone: [facility] 10-14-2023 13:19-0400 Body weight 82.1 kg Teresa LOZANO Work Phone: [facility] 10-14-2023 13:19-0400 Diastolic blood pressure 78 mm[Hg] Teresa LOZANO Work Phone: [facility] 10-14-2023 13:19-0400 Systolic blood pressure 122 mm[Hg] Teresa LOZANO Work Phone: [facility] Encounters Encounter Date Encounter Type Care Provider Facility Start: 01-02-2024 End: 01-02-2024 Bamboo flowsheet Teresa LOZANO Work Phone: [facility] Start: 01-02-2024 End: 01-02-2024 Bamboo flowsheet Teresa LOZANO Work Phone: [facility] Start: 01-02-2024 End: 01-02-2024 Office outpatient visit 5 minutes Teresa LOZANO Work Phone: [facility] Comment on above: Encounter for weight management Start: 01-02-2024 End: 01-02-2024 ambulatory TERESA DOBBINS Not Available Start: 12-05-2023 End: 12-05-2023 Bamboo flowsheet Luz Maria Daniel DO Work Phone: [facility] Start: 12-05-2023 End: 12-05-2023 Bamboo flowsheet Luz Maria Daniel DO Work Phone: [facility] Start: 12-05-2023 End: 12-05-2023 Office outpatient visit 15 minutes Luz Maria Daniel DO Work Phone: [facility] Comment on above: Encounter for weight management; H/O cold sores; Decreased libido Start: 12-05-2023 End: 12-05-2023 ambulatory LUZ MARIA DANIEL Not Available Start: 11-07-2023 End: 11-07-2023 Bamboo flowsheet Luz Maria Daniel DO Work Phone: [facility] Start: 11-07-2023 End: 11-07-2023 Bamboo flowsheet Luz Maria Daniel DO Work Phone: [facility] Start: 11-07-2023 End: 11-07-2023 ambulatory LUZ MARIA SANCHEZ Not Available Start: 11-07-2023 End: 11-07-2023 Phys/qhp telephone evaluation 5-10 min Luz Maria Daniel DO Work Phone: [facility] Comment on above: Low testosterone; Insulin resistance Start: 10-24-2023 End: 10-24-2023 Clinisync Result Encounter Luz Maria Daniel DO Work Phone: [facility] External Department Unsolicited Start: 10-24-2023 End: 10-24-2023 Clinisync Result Encounter Luz Maria Daniel DO Work Phone: [facility] External Department Unsolicited Start: 10-14-2023 End: 10-14-2023 Bamboo flowsheet Teresa LOZANO Work Phone: [facility] Start: 10-14-2023 End: 10-18-2023 Bamboo flowsheet Teresa LOZANO Work Phone: [facility] Start: 10-14-2023 End: 10-18-2023 Clinisync Result Encounter Teresa LOZANO Work Phone: [facility] External Department Unsolicited Start: 10-14-2023 End: 10-14-2023 Patient encounter procedure Teresa LOZANO Work Phone: [facility] Start: 10-14-2023 End: 10-14-2023 Periodic preventive med est patient 40-64yrs Teresa LOZANO Work Phone: [facility] Comment on above: Well woman exam with routine gynecological exam; Breast cancer screening by mammogram Start: 10-14-2023 End: 10-14-2023 ambulatory TERESA DOBBINS Not Available Start: 04-19-2021 End: 04-20-[address] LUZ MARIA SANCHEZ Facility:[facility] Start: 02-13-2021 End: 02-14-[address] LUZ MARIA SANCHEZ Facility:[facility] Start: 12-06-2020 End: 12-06-[address] LUZ MARIA SANCHEZ Facility:[facility] Start: 11-16-2020 End: 11-17-[address] LUZ MARIA SANCHEZ Facility:[facility] Start: 11-04-2020 End: 11-05-[address] LUZ MARIA SANCHEZ Facility:[facility] Start: 10-29-2020 Encounter for gynecological examination (general) (routine) without abnormal findings DR LUZ MARIA SANCHEZ [facility] Start: 10-17-2020 End: 10-17-[address] LUZ MARIA SANCHEZ Facility:[facility] Start: 10-17-2020 End: 10-17-2020 Encounter for gynecological examination (general) (routine) without abnormal findings DR LUZ MARIA SANCHEZ Facility:[facility] Procedures Date Procedure Procedure Detail Performing Clinician Start: 10-24-2023 MLR HEMOGLOBIN A1C Marry Sanchez DO Work Phone: Start: 10-14-2023 IGP,APTIMA HPV,AGE GDLN Teresa LOZANO Work Phone: Plan of Treatment Date Care Activity Detail Author Start: 01-30-2024 End: 01-30-2024 Patient encounter procedure 01/30/2024 9:30 AM EST Office Visit [facility] [address] [place] [phone] Teresa Dobbins PA [address] [place] [address] [facility] Start: 01-02-2024 End: 01-02-2024 Patient encounter procedure 01/02/2024 8:30 AM EST Office Visit [facility] [address] [place] [address] Teresa Dobbins PA [address] [place] [address] [facility] Start: 12-05-2023 End: 12-05-2023 Patient encounter procedure [facility] Comment on above: Arrived Start: 11-07-2023 End: 11-07-2023 Patient encounter procedure 11/07/2023 8:10 AM EDT Office Visit [facility] [address] [place] [phone] Luz Maria Sanchez, DO [address] [place] [address] [facility] Start: 10-16-2023 End: 10-16-2023 Patient encounter procedure 10/16/2023 8:10 AM EDT Office Visit [facility] [address] [facility] [place] [phone] Luz Maria Sanchez, DO [address] [place] [address] [facility] Start: 10-14-2023 End: 10-14-2023 Patient encounter procedure 10/14/2023 1:00 PM EDT Office Visit [facility] [address] [place] [place] [address] Teresa Dobbins PA [address] [facility] [place] [address] Arrived [facility] Comment on above: Arrived THIN PREP TIS PAP AN D HR HPV DNA THIN PREP TIS PAP AND HR HPV DNA Pathology and Cytology Routine Well woman exam with routine gynecological exam Ordered: 10/14/2023 [facility] Work Phone: Comment on above: Ordered: 10/14/2023 Payers Date Payer Category [id number] 2023 Unknown BCBS BCBS xxxxxx [id number] 2023-Present [phone] [address] [place] [address] [id number] 2023 Unknown [id number] 1979 Unknown [id number] [id number]. 593 1979 Unknown [id number] [id number]. 593 1979 Unknown [id number] 2.16.840.1.129000.3.579.2. 593 1979 Unknown [id number] [id number]. 593 1979 Unknown [id number] [id number]. 593 1979 Unknown [id number] [id number]. 593 1979 Unknown [id number] 2.16.840.1.024888.3.579.2. 1259 1979 Unknown [id number] 2.16.840.1.340801.3.579.2. 1259 1979 Unknown [id number] 2.16.840.1.295808.3.579.2. 1259 1979 Unknown [id number] [id number]. 1259 1959 Unknown [id number] 1959 Unknown [id number] Social History Date Type Detail Facility Tobacco smoking stat [facility] Tobacco smoking consumption unknown [facility] Start: 1980 Sex assigned at Not on file [facility] Start: 12-05-2023 Gender identity Not on file [facility] 12-05-[facility]23 [facility] History of tobacco use Cigarette Smoker [facility] Start: 12-05-2023 End: 01-02-2024 Cigarettes smoked current (pack per day) - Reported 1 [facility] Start: 12-05-2023 Tobacco use and exposure Smokeless t obacco non-user [facility] Start: 12-05-2023 End: 01-02-2024 Alcoholic beverage intake Current drinker of alcohol (finding) [facility] History of Present illness Narrative 01-02-2024 Ila Barrera, WILMAR - 01/02/2024 8:30 AM EST Note Date & Type Note Facility 01-02-2024 History of Presen t illness Narrative Reason for Appointment: Patient ID: Pepper Luque is a 43 y.o. female who presents for encounter for weight management Patient presents today for a weight management consultation. Patient has been prescribed Adipex and she is here for her 2nd prescription. Today's Vitals: Estimated body mass index is 31.48 kg/m as calculated from the following: Height as of 12/05/23: 5' 4 . Weight as of this encounter: 183 lb 6.4 oz. Previous Weight/BMI: Wt Readings from Last 2 Encounters: 01/02/24 183 lb 6.4 oz 12/05/23 187 lb BMI Readings from Last 2 Encounters: 01/02/24 31.48 kg/m 12/05/23 32.10 kg/m Allergies as of 01/02/2024 (No Known Allergies) History reviewed. No pertinent past medical history. Past Surgical History: Procedure Laterality Date BREAST BIOPSY TUBAL LIGATION Assessment/Plan Encounter Diagnosis Name Primary? Encounter for weight management Adipex: Patient presents today for 2nd Adipex prescription. Patients weight and blood pressure has been captured and discussed with the patient. I have discussed/reiterated the importance of keeping a food journal, proper nutrition/diet, and exercise regimen while taking Adipex. Patient verbalized understanding and was given a printed prescription signed by provider to take to their local pharmacy. Patient states craving Sugar at night and she was encouraged to increase Protein at night. Patient also asking about the injectable medication and she was advised of this and that this does go to [facility] she states that she will do some research and follow up next month. Follow Up: Patient is to return to the office in 1 month for further evaluation to assess patient progress. Weight and blood pressure will need to be obtained in order for patient to receive 3rd prescription. Documented by: Ila Barrera LPN on behalf of BLAKE Ng documented in this encounter [facility] History of Present illness Narrative 12-05-2023 Va Saunders LPN - 12/05/2023 8:50 AM EDT Note Date & Type Note Facility 12-05-2023 History of Presen t illness Narrative Reason for Appointment: Patient ID: Pepper Luque is a 43 y.o. female who presents for Weight Management Patient presents today for Weight Management Consult. MEDICATIONS Current Outpatient Medications Medication Instructions metFORMIN XR (GLUCOPHAGE-XR) 500 mg, Oral, Daily with evening meal, Do not crush, chew, or split. ALLERGIES No Known Allergies PROBLEMS Active Ambulatory Problems Diagnosis Date Noted Decreased libido 10/24/2023 Low testosterone 11/07/2023 Insulin resistance 11/07/2023 Resolved Ambulatory Problems Diagnosis Date Noted No Resolved Ambulatory Problems No Additional Past Medical History HISTORY PAST MEDICAL HISTORY SOCIAL HISTORY History reviewed. No pertinent past medical history. Social History Tobacco Use Smoking status: Every Day Current packs/day: 1.00 Average packs/day: 1 pack/day for 15.0 years (15.0 ttl pk-yrs) Types: Cigarettes Smokeless tobacco: Never Substance Use Topics Alcohol use: Yes Alcohol/week: 40.0 standard drinks of alcohol Types: 40 Cans of beer per week Drug use: Never FAMILY HISTORY No family history on file. SURGICAL HISTORY Past Surgical History: Procedure Laterality Date BREAST BIOPSY TUBAL LIGATION REVIEW OF SYSTEMS Review of Systems: Review of Systems All other systems reviewed and are negative. OBJECTIVE Objective: Physical Exam Constitutional: Appearance: Normal appearance. She is well-developed. Cardiovascular: Rate and Rhythm: Normal rate and regular rhythm. Pulmonary: Effort: Pulmonary effort is normal. Breath sounds: Normal breath sounds. Abdominal: General: Bowel sounds are normal. There is no distension. Palpations: Abdomen is soft. Tenderness: There is no abdominal tenderness. There is no guarding or rebound. Musculoskeletal: General: No swelling. Normal range of motion. Right lower leg: No edema. Left lower leg: No edema. Neurological: Mental Status: She is alert and oriented to person, place, and time. Skin: General: Skin is warm and dry. Psychiatric: Mood and Affect: Mood normal. Behavior: Behavior normal. Vitals and nursing note reviewed. Exam conducted with a credit card interviewer present. Vitals: Estimated body mass index is 32.1 kg/m as calculated from the following: Height as of this encounter: 5' 4 . Weight as of this encounter: 187 lb. BP: 118/76 No LMP recorded. ASSESSMENT & PLAN Patient presents today to discuss weight management and initial Adipex prescription.. Patient voiced that Metformin is causing a lot of GI upset and patient advised to discontinue Metformin. The importance of keeping a food journal, proper nutrition/diet, and exercise regimen while taking Adipex has been discussed. Patient verbalized understanding and signed consents to initiate (Adipex) medication therapy. Patient was given a printed prescription signed by provider to take to their local pharmacy. Discussed decreased libido and cream will be sent to [facility] to be compounded. Follow Up: Patient is to return to the office in 1 month for further evaluation to assess patient progress. Weight and blood pressure will need to be captured in order for patient to receive 2nd prescription. Documented by Va Saunders LPN on behalf of: Luz Maria Sanchez DO documented in this encounter [facility] History of Present illness Narrative 11-07-2023 Va Saunders LPN - 11/07/2023 8:10 AM EDT Note Date & Type Note Facility 11-07-2023 History of Presen t illness Narrative Reason for Appointment: Patient ID: Pepper Luque is a 43 y.o. female who presents for No chief complaint on file. Patient presents today via telephone call for a telehealth appointment. Patients Phone #: [phone] (mobile) Current Medications: has a current medication list which includes the following prescription(s): acyclovir and dexamethasone. Medical History: Active Ambulatory Problems Diagnosis Date Noted Decreased libido 10/24/2023 Resolved Ambulatory Problems Diagnosis Date Noted No Resolved Ambulatory Problems No Additional Past Medical History No family history on file. Social History Tobacco Use Smoking status: Not on file Smokeless tobacco: Not on file Substance Use Topics Alcohol use: Not on file Drug use: Not on file No past surgical history on file. No Known Allergies Vitals: There is no height or weight on file to calculate BMI. BP: Patient's last menstrual period was 09/17/2023 (approximate). Assessment/Plan 920 Dr. Sanchez called patient to initiate TeleHealth appointment. Discussed testosterone levels and A1c. Patient voiced that she does crave sugar daily and increase in fatigue. Discussed Metformin to assist with insulin resistance. Patients current BMI 31.1 is calculated with 181lbs and 64in. Discussed weight management journey, patient is agreeable to starting weight management. Patient voiced that even getting 8 hours of sleep daily and she still feels she could take a nap throughout the day. Discussed starting Metformin 500mg for 4 weeks, then return to clinic for an increase in Metformin to 1000mg daily and initiate Adipex medication. Patient is agreeable with plan of care an will she if levels of testosterone rise and if not then can discuss incorporating testosterone if needed. Discussed if patient cannot tolerate Metformin then could always discuss Wegovy injections if patient desires. Patient transferred to clerical to schedule appointment in 4 weeks. Today's telehealth visit consisted of spending 8 minutes talking to patient on the phone. Documented by Va Saunders LPN on behalf of: Luz Maria Sanchez DO documented in this encounter [facility] History of Present illness Narrative 10-14-2023 BLAKE Ng - 10/14/2023 1:00 PM EDT Note Date & Type Note Facility 10-14-2023 History of Presen t illness Narrative Reason for Appointment: Patient ID: Pepper Luque is a 43 y.o. female who presents for Gynecologic Exam Patient presents today for Annual Exam. MEDICATIONS Current Outpatient Medications Medication Instructions acyclovir (Zovirax) 400 MG tablet take 2 tablet by oral route 5 times every day for 10 days Oral dexAMETHasone (DECADRON) 6 mg, Oral, Daily ALLERGIES Not on File PROBLEMS Active Ambulatory Problems Diagnosis Date Noted No Active Ambulatory Problems Resolved Ambulatory Problems Diagnosis Date Noted No Resolved Ambulatory Problems No Additional Past Medical History HISTORY PAST MEDICAL HISTORY SOCIAL HISTORY No past medical history on file. Social History Tobacco Use Smoking status: Not on file Smokeless tobacco: Not on file Substance Use Topics Alcohol use: Not on file Drug use: Not on file FAMILY HISTORY No family history on file. SURGICAL HISTORY History reviewed. No pertinent surgical history. REVIEW OF SYSTEMS Review of Systems: Review of Systems Constitutional: Negative. HENT: Negative. Eyes: Negative. Respiratory: Negative. Cardiovascular: Negative. Gastrointestinal: Negative. Genitourinary: Negative. Musculoskeletal: Negative. Skin: Negative. Neurological: Negative. All other systems reviewed and are negative. Hematological: Negative. Endocrine: Negative. Allergic/Immunologic: Negative. OBJECTIVE Objective: Physical Exam Constitutional: Appearance: Normal appearance. She is well-developed. Genitourinary: Vulva normal. Right Adnexa: not tender and no mass present. Left Adnexa: not tender and no mass present. No cervical discharge. Breasts: Breasts are soft. Right: Normal. Left: Normal. HENT: Head: Normocephalic. Nose: Nose normal. Mouth/Throat: Mouth: Mucous membranes are moist. Cardiovascular: Rate and Rhythm: Normal rate and regular rhythm. Pulmonary: Effort: Pulmonary effort is normal. Breath sounds: Normal breath sounds. Abdominal: General: Bowel sounds are normal. There is no distension. Palpations: Abdomen is soft. Tenderness: There is no abdominal tenderness. There is no guarding or rebound. Musculoskeletal: General: No swelling. Normal range of motion. Cervical back: Normal range of motion. Right lower leg: No edema. Left lower leg: No edema. Neurological: General: No focal deficit present. Mental Status: She is alert and oriented to person, place, and time. Skin: General: Skin is warm and dry. Psychiatric: Mood and Affect: Mood normal. Behavior: Behavior normal. Vitals and nursing note reviewed. Exam conducted with a credit card interviewer present. Vitals: There is no height or weight on file to calculate BMI. BP: No LMP recorded. ASSESSMENT & PLAN ICD-10-CM 1. Well woman exam with routine gynecological exam Z01.419 THIN PREP TIS PAP AND HR HPV DNA 2. Breast cancer screening by mammogram Z12.31 Bilateral screening mammogram Bilateral screening mammogram Pt present today for an annual visit. Pt complains of low libido. Pt stated 2 yrs ago she came in to see Daniel for having low testosterone and was on testosterone for a few months and then took herself off since she did not see any difference. Pt has had a mammogram 6 months ago w/PCP Dr. Cordon. Pt will have the office fax us the results. Pt does not need b/c, her had a vasectomy. Pt will have telehealth appointment with to discuss libido. States she has no desire but did not see difference with testosterone in past Documented by Katy Boykin MA on behalf of: BLAKE Ng documented in this encounter [facility] Clinical Note 06-11-2021 Note Date & Type [...] these instructions at home: Medicines ? Take [id number] and prescription medicines only as told by [...] provider. Document Revised: 04/24/2019 Document Reviewed: 04/24/2019 [employer] Patient Education ? 2020 [employer]. [facility] Evaluation note Note Date & Type Note Facility Evaluation note Diagnosis Encounter for weight management H/O cold sores Decreased libido documented in this encounter [facility] Evaluation note Note Date & Type Note Facility Evaluation note Diagnosis Encounter for weight management documented in this encounter [facility] Evaluation note Note Date & Type Note Facility Evaluation note Diagnosis Well woman exam with routine gynecological exam Routine gynecological examination Breast cancer screening by mammogram documented in this encounter [facility] Evaluation note Note Date & Type Note Facility Evaluation note Diagnosis Low testosterone Insulin resistance Other abnormal glucose documented in this encounter [facility] Summary Purpose Family History No Family History Records FoundNo Family History Records FoundNo Family History Records Found Advance Directives No Advanced Directives Records FoundNo Advanced Directives Records FoundNo Advanced Directives Records Found Reason for Referral Specialty Diagnoses / Procedures Referred By Contac t Referred To Contact Diagnoses Insulin resistance Luz Maria Sanchez, DO [address] [facility] [place] [address] Referral ID Status Reason Start Date Expiration Date Visits Re quested Visits Authorized [id number] Closed 1 1 Additional Source Comments INFORMATION SOURCE (unrecogn ized section and content) DATE CREATED AUTHOR 04/21/2021 [facility] DATE CREATED AUTHOR AUTHOR'S ORGANIZ ATION 06/12/2021 [facility] DATE CREATED AUTHOR AUTHOR'S ORGANIZ ATION 01/04/2024 [facility] EPIC Reason for Visit (unrecogniz ed section and content) Reason Comments Weight Management Reason Comments encounter for weight management Reason Comments Gynecologic Exam FOR RECORDS PERTAINING TO PATIENTS WHO ARE [...] BE BASED ON THE PRIMARY CLINICAL RECORDS. [facility]. provides no warranty or guarantee of the accuracy or completeness of information in this document.
== END 2024-04-16 10:16 | disposition home or self-care (01) ==
LOC: MAMMO 10:15
PROVIDERS: PCP Family Medicine; Visit Provider Obstetrics & Gynecology
DX: R92.8 Other abnormal and inconclusive findings on diagnostic imaging of breast (principal); Z12.31 Encounter for screening mammogram for malignant neoplasm of breast
CPT/HCPCS: 77063; 77067